=== PATIENT | female | born 1980 | race African-American/Black ===

== ENCOUNTER 2019-07-08 10:08 | Emergency (ER) | payer MEDICARE, OTHER, MEDICAID ==
--- NOTE | 2019-07-08 10:53 | ER Document Report ---
ED Medical Screen (RME) - General Chief Complaint: Abdominal Pain Stated Complaint: ABDOMINAL PAIN,VAGINAL PAIN Time Seen by Provider: 07/08/19 10:41 Notes: Patient is a 38-year-old female with a history of Crohn's disease who presents the emergency department with a chief complaint of abdominal pain and vaginal discharge. Patient states that she is visiting from [place] and her luggage has not arrived. Patient is currently on clindamycin. Patient states that she is on it for vaginal discharge and she does not have her medication. Patient states that she does have some abdominal pain and vaginal discharge, which is normal for her when she has an acute Crohn's attack. Patient has a colostomy. LMP: last week. Exam: Soft mildly tender abdomen. Left lower colostomy noted. I have greeted and performed a rapid initial assessment of this patient. A comprehensive ED assessment and evaluation of the patient, analysis of test results and completion of medical decision making process will be conducted by an additional ED providers. - Related Data Allergies/Adverse Reactions: cephalexin [From Keflex] Allergy (Verified 07/08/19 10:37) morphine Allergy (Verified 07/08/19 10:37) tramadol Allergy (Verified 07/08/19 10:37) Past Medical History - Social History Frequency of alcohol use: None Drug Abuse: None Physical Exam - Vital signs Vitals: Temp Pulse Resp BP Pulse Ox 98.1 F 102 H 18 112/76 100 07/08/19 10:26 07/08/19 10:26 07/08/19 10:26 07/08/19 10:26 07/08/19 10:26 Course - Vital Signs Vital signs: Temp Pulse Resp BP Pulse Ox 98.1 F 102 H 18 112/76 100 07/08/19 10:26 07/08/19 10:26 07/08/19 10:26 07/08/19 10:26 07/08/19 10:26
[2019-07-08] MEDS ORDERED: NORMAL SALINE 1000 ML 1,000 ML IV ONE (12:50)
--- NOTE | 2019-07-08 12:52 | ER Document Report ---
ED GI/ - General Chief Complaint: Abdominal Pain Stated Complaint: ABDOMINAL PAIN,VAGINAL PAIN Time Seen by Provider: 07/08/19 10:41 Primary Care Provider: [facility] [Provider Group] - Follow up as needed Mode of Arrival: Ambulatory Information source: Patient Notes: Patient presents complaining of flareup of her chronic pelvic pain and vaginal pain. Patient has a history of Crohn's and possibly hidradenitis. Patient states she has had surgery in which they removed her labia and clitoris due to her chronic conditions. Patient states that she will occasionally require antibiotics. Patient states that she is visiting here from out of state and her luggage was lost with her antibiotics and pain medication. Patient states she has been taking clindamycin for her vaginal discharge and vaginal pain as well as hydrocodone. Patient denies any fever or urinary symptoms. No nausea vomiting or diarrhea. Patient states this is typical of when she has had flareups in the past. - HPI Patient complains to provider of: Pelvic pain, Vaginal pain Onset: Other - 2 days Timing/Duration: Persistent Quality of pain: Achy Pain Level: 4 Location: Suprapubic, Vaginal Vaginal bleeding (Compared to normal period): None Sexual history: Inactive Associated symptoms: Vaginal discharge. denies: Diarrhea, Nausea Exacerbated by: Denies Relieved by: Denies Similar symptoms previously: Yes Recently seen / treated by doctor: Yes - Related Data Allergies/Adverse Reactions: cephalexin [From Keflex] Allergy (Verified 07/08/19 10:37) morphine Allergy (Verified 07/08/19 10:37) tramadol Allergy (Verified 07/08/19 10:37) Past Medical History - General Information source: Patient - Social History Smoking Status: Never Smoker Frequency of alcohol use: None Drug Abuse: None Lives with: Family Family History: Reviewed & Not Pertinent Patient has suicidal ideation: No Patient has homicidal ideation: No GI Medical History: Reports: Hx Crohn's Disease Musculoskeletal Medical History: Reports Hx Arthritis Past Surgical History: Reports: Hx Bowel Surgery, Hx Section, Hx Cholecystectomy, Hx Colostomy, Other - Labia clitoris, vaginal surgery Review of Systems - Review of Systems Constitutional: No symptoms reported. denies: Fever, Recent illness EENT: No symptoms reported Cardiovascular: No symptoms reported. denies: Chest pain Respiratory: No symptoms reported. denies: Cough Gastrointestinal: Abdominal pain. denies: Diarrhea, Nausea, Vomiting Genitourinary: No symptoms reported Female Genitourinary: Vaginal discharge, Other - Vaginal pain. denies: , Vaginal bleeding Musculoskeletal: No symptoms reported. denies: Back pain Skin: No symptoms reported Hematologic/Lymphatic: No symptoms reported Neurological/Psychological: No symptoms reported Physical Exam - Vital signs Vitals: Temp Pulse Resp BP Pulse Ox 98.1 F 102 H 18 112/76 100 07/08/19 10:26 07/08/19 10:26 07/08/19 10:26 07/08/19 10:26 07/08/19 10:26 - General General appearance: Appears well, Alert In distress: None - HEENT Head: Normocephalic Eyes: Normal Conjunctiva: Normal Nasal: Normal Mouth/Lips: Normal Mucous membranes: Normal Neck: Normal, Supple. No: Lymphadenopathy - Respiratory Respiratory status: No respiratory distress Chest status: Nontender Breath sounds: Normal. No: Rales, Rhonchi, Stridor, Wheezing Chest palpation: Normal - Cardiovascular Rhythm: Regular Heart sounds: S1 appreciated, S2 appreciated - Abdominal Inspection: Other - colostomy, linear abd scar Distension: No distension Bowel sounds: Normal Tenderness: Tender - suprapubic Organomegaly: No organomegaly - Genitourinary External exam: Other - s/p surgical changes - Back Back: Normal, Nontender. No: CVA tenderness - Extremities General upper extremity: Normal inspection, Normal strength General lower extremity: Normal inspection, Normal strength - Neurological Neuro grossly intact: Yes Cognition: Normal Dimitris Coma Scale Eye Opening: Spontaneous Dimitris Coma Scale Verbal: Oriented Dimitris Coma Scale Motor: Obeys Commands Dimitris Coma Scale Total: 15 - Psychological Associated symptoms: Normal affect, Normal mood - Skin Skin Temperature: Warm Skin Moisture: Dry Skin Color: Normal Course - Re-evaluation Re-evalutation: 07/08/19 13:19 pt refused pelvic exam, although is agreeable to have wet prep performed. Pt also refused IVF. 07/08/19 14:14 Patient anxious to leave. Patient reports having chronic problems with vaginal discharge and pelvic pain. Patient states is typical flareups that she has had in the past. Patient here as she needs her prescription for clindamycin and pain medicine that was lost due to her lost luggage. Patient presents with abdominal pain without signs of peritonitis or other life-threatening or serious etiology. Patient appears stable for discharge and has been instructed to return immediately if the symptoms worsen in any way for reevaluation. - Vital Signs Vital signs: Temp Pulse Resp BP Pulse Ox 98.3 F 96 16 112/72 98 07/08/19 14:36 07/08/19 14:36 07/08/19 14:36 07/08/19 14:36 07/08/19 14:36 - Laboratory Result Diagrams: 07/08/19 12:45 07/08/19 12:45 Laboratory results interpreted by me: 07/08/19 07/08/19 07/08/19 12:45 12:45 12:52 Hgb 11.9 L MCV 75 L MCH 23.9 L MCHC 31.8 L RDW 14.5 H Total Protein 10.5 H Leukocyte Esterase Rfl SMALL H Labs- Entire Visit 07/08/19 07/08/19 07/08/19 12:45 12:45 12:45 WBC 4.6 RBC 4.99 Hgb 11.9 L Hct 37.5 MCV 75 L MCH 23.9 L MCHC 31.8 L RDW 14.5 H Plt Count 291 Lymph % (Auto) 22.9 [place] % (Auto) 4.6 Eos % (Auto) 3.1 Baso % (Auto) 0.9 Absolute Neuts (auto) 3.1 Absolute Lymphs (auto) 1.1 Absolute Monos (auto) 0.2 Absolute Eos (auto) 0.1 Absolute Basos (auto) 0.0 Seg Neutrophils % 68.5 Sodium 142.7 Potassium 4.6 Chloride 104 Carbon Dioxide 24 Anion Gap 15 BUN 9 Creatinine 0.91 Est GFR ( Amer) > 60 Est GFR (MDRD) Non-Af > 60 Glucose 91 Calcium 10.1 Total Bilirubin 1.0 Direct Bilirubin 0.2 Neonat Total Bilirubin Not Reportable Neonat Direct Bilirubin Not Reportable Neonat Indirect Bili Not Reportable AST 23 ALT 14 Alkaline Phosphatase 101 Total Protein 10.5 H Albumin 4.9 Serum HCG, Qual NEGATIVE Urine Color Urine Appearance Urine pH Ur Specific [place] Urine Protein Urine Glucose (UA) Urine Ketones Urine Blood Urine Nitrite (Reflex) Urine Bilirubin Urine Urobilinogen Leukocyte Esterase Rfl Urine RBC (Auto) U Hyaline Cast (Auto) Urine WBC (Reflex) Squamous Epi Cells Auto Urine Mucus (Auto) Urine Ascorbic Acid Bacteria (Wet Prep) Trichomonas (Wet Prep) Vaginal WBC Vaginal RBC Vaginal Yeast 07/08/19 07/08/19 12:52 13:17 WBC RBC Hgb Hct MCV MCH MCHC RDW Plt Count Lymph % (Auto) [place] % (Auto) Eos % (Auto) Baso % (Auto) Absolute Neuts (auto) Absolute Lymphs (auto) Absolute Monos (auto) Absolute Eos (auto) Absolute Basos (auto) Seg Neutrophils % Sodium Potassium Chloride Carbon Dioxide Anion Gap BUN Creatinine Est GFR ( Amer) Est GFR (MDRD) Non-Af Glucose Calcium Total Bilirubin Direct Bilirubin Neonat Total Bilirubin Neonat Direct Bilirubin Neonat Indirect Bili AST ALT Alkaline Phosphatase Total Protein Albumin Serum HCG, Qual Urine Color YELLOW Urine Appearance CLEAR Urine pH 5.0 Ur Specific [place] 1.021 Urine Protein NEGATIVE Urine Glucose (UA) NEGATIVE Urine Ketones NEGATIVE Urine Blood NEGATIVE Urine Nitrite (Reflex) NEGATIVE Urine Bilirubin NEGATIVE Urine Urobilinogen NEGATIVE Leukocyte Esterase Rfl SMALL H Urine RBC (Auto) 2 U Hyaline Cast (Auto) 3 Urine WBC (Reflex) 13 Squamous Epi Cells Auto 1 Urine Mucus (Auto) MOD Urine Ascorbic Acid NEGATIVE Bacteria (Wet Prep) 3+ BACTERIA SEEN Trichomonas (Wet Prep) NO TRICHOMONAS SEEN Vaginal WBC 3+ WBCS SEEN Vaginal RBC FEW RBCS SEEN Vaginal Yeast NO YEAST SEEN Discharge - Discharge Clinical Impression: Vaginal discharge, Chronic pelvic pain in female Condition: Stable Disposition: HOME, SELF-CARE Instructions: Abdominal Pain ([facility]), Clindamycin ([facility]), Oral Narcotic Medication ([facility]), Pelvic Pain ([facility]) Additional Instructions: Return immediately for any new or worsening symptoms Followup with your primary care provider, call tomorrow to make a followup appointment Urine culture is pending, we will call if you need any different treatment Prescriptions: Clindamycin HCl [Cleocin Hcl] 300 mg PO QID #28 capsule Hydrocodone/Acetaminophen [[place] 5-325 mg Tablet] 1 tab PO Q6 PRN #12 tablet PRN Reason: Referrals: [facility] [Provider Group] - Follow up as needed
[2019-07-08 13:05] LABS: ABSOLUTE EOSINOPHILS # (AUTO) 0.1 10^3/uL (0.0-0.6); ABSOLUTE LYMPHOCYTES (AUTO) 1.1 10^3/uL (0.5-4.7); ABSOLUTE MONOCYTES (AUTO) 0.2 10^3/uL (0.1-1.4); ABSOLUTE NEUT (AUTO) 3.1 10^3/uL (1.7-8.2); BASOPHILS % (AUTO) 0.9 % (0-2); EOSINOPHILS % (AUTO) 3.1 % (0-6); HEMATOCRIT 37.5 % (36.0-47.0); HEMOGLOBIN 11.9 g/dL (12.0-15.5); LYMPHOCYTES % (AUTO) 22.9 % (13-45); MEAN CORPUSCULAR HEMOGLOBIN 23.9 pg (27.0-33.4); MEAN CORPUSCULAR HGB CONC 31.8 g/dL (32.0-36.0); MEAN CORPUSCULAR VOLUME 75 fl (80-97); MONOCYTES % (AUTO) 4.6 % (3-13); PLATELET COUNT 291 10^3/uL (150-450); RED BLOOD COUNT 4.99 10^6/uL (3.72-5.28); RED CELL DISTRIBUTION WIDTH 14.5 % (11.5-14.0); SEGMENTED NEUTROPHILS % (AUTO) 68.5 % (42-78); TOTAL CELLS COUNTED % (AUTO) 100 %; WHITE BLOOD COUNT 4.6 10^3/uL (4.0-10.5)
[2019-07-08] MEDS ORDERED: HYDROCODONE/ACETAMINOPHEN 5-325 MG TABLET PO ONE (13:20)
[2019-07-08] MEDS ORDERED: CLINDAMYCIN HCL 150 MG CAPSULE PO ONE (13:20)
[2019-07-08 13:30] LABS: ALBUMIN 4.9 g/dL (3.5-5.0); ALKALINE PHOSPHATASE 101 U/L (38-126); ANION GAP 15 (5-19); ASPARTATE AMINO TRANSFERASE 23 U/L (14-36); BILIRUBIN,DIRECT 0.2 mg/dL (0.0-0.4); BLOOD UREA NITROGEN 9 mg/dL (7-20); CALCIUM 10.1 mg/dL (8.4-10.2); CARBON DIOXIDE 24 mmol/L (22-30); CHLORIDE 104 mmol/L (98-107); GLUCOSE 91 mg/dL (75-110); POTASSIUM 4.6 mmol/L (3.6-5.0); TOTAL PROTEIN 10.5 g/dL (6.3-8.2)
[2019-07-08 13:32] LABS: APPEARANCE,URINE CLEAR; BILIRUBIN,URINE NEGATIVE (NEGATIVE); COLOR,URINE YELLOW; GLUCOSE, URINE NEGATIVE (NEGATIVE); KETONES,URINE NEGATIVE (NEGATIVE); PROTEIN,URINE NEGATIVE (NEGATIVE); URINE SPECIFIC GRAVITY 1.021; UROBILINOGEN,URINE NEGATIVE mg/dL (<2.0)
[2019-07-08 13:46] LABS: RBCS (WET MOUNT) FEW RBCS SEEN; T.VAGINALIS (WET MOUNT) NO TRICHOMONAS SEEN; WBCS (WET MOUNT) 3+ WBCS SEEN; YEAST (WET MOUNT) NO YEAST SEEN
[2019-07-08 13:47] LABS: BACTERIA (WET MOUNT) 3+ BACTERIA SEEN
[2019-07-08 14:36] VITALS: BP 112/72
== END 2019-07-08 14:38 | disposition home or self-care (01) ==
LOC: ER 10:08
DX: N89.8 Other specified noninflammatory disorders of vagina (principal); G89.29 Other chronic pain; R10.2 Pelvic and perineal pain; Z88.6 Allergy status to analgesic agent; Z88.3 Allergy status to other anti-infective agents; Z90.49 Acquired absence of other specified parts of digestive tract
CPT/HCPCS: 36415; 87210; 84703; 85025; 80053; 81001; A9270 ×2; 87086; 99284

== ENCOUNTER 2019-07-15 14:00 | Emergency (ER) | payer MEDICARE, MEDICAID ==
--- NOTE | 2019-07-15 14:40 | ER Document Report ---
ED Medical Screen (RME) - General Chief Complaint: Vaginal Pain Stated Complaint: SKIN PROBLEM Time Seen by Provider: 07/15/19 14:32 Mode of Arrival: Ambulatory Information source: Patient Notes: Patient presents complaining of a flareup of her Crohn's disease for the past week. Patient complains of vaginal pain with drainage. Patient with a history of Crohn's and questionable hidradenitis which required her to have vaginal and labial surgery. Patient with pain and discharge to this area. Patient denies any concern for STI. Patient is [place] and lost her baggage. Patient was restarted on her clindamycin that she has taken in the past for problems with her vaginal discharge although she has since run out of the pain medication. Patient feels that her pain is due to a Crohn's flareup. Patient denies any fever nausea or vomiting. I have greeted and performed a rapid initial assessment of this patient. A comprehensive ED assessment and evaluation of the patient, analysis of test results and completion of the medical decision making process will be conducted by additional ED providers. - Related Data Allergies/Adverse Reactions: cephalexin [From Keflex] Allergy (Verified 07/08/19 10:37) morphine Allergy (Verified 07/08/19 10:37) tramadol Allergy (Verified 07/08/19 10:37) Home Medications: Clindamycin. Probiotic. Appetite medication. [place] Past Medical History - Social History Frequency of alcohol use: None Drug Abuse: None GI Medical History: Reports: Hx Crohn's Disease Musculoskeltal Medical History: Reports Hx Arthritis Past Surgical History: Reports: Hx Bowel Surgery, Hx Section, Hx Cholecystectomy, Hx Colostomy, Other - Labia clitoris, vaginal surgery Physical Exam - Vital signs Vitals: Temp Pulse Resp BP Pulse Ox 98.1 F 77 18 120/74 98 07/15/19 14:08 07/15/19 14:08 07/15/19 14:08 07/15/19 14:08 07/15/19 14:08 - General General appearance: Appears well, Alert Notes: No abdominal tenderness, pelvic examination deferred given patient's location in triage Course - Vital Signs Vital signs: Temp Pulse Resp BP Pulse Ox 98.1 F 77 18 120/74 98 07/15/19 14:08 07/15/19 14:08 07/15/19 14:08 07/15/19 14:08 07/15/19 14:08
[2019-07-15 15:13] LABS: ABSOLUTE EOSINOPHILS # (AUTO) 0.1 10^3/uL (0.0-0.6); ABSOLUTE LYMPHOCYTES (AUTO) 1.1 10^3/uL (0.5-4.7); ABSOLUTE MONOCYTES (AUTO) 0.3 10^3/uL (0.1-1.4); ABSOLUTE NEUT (AUTO) 2.8 10^3/uL (1.7-8.2); BASOPHILS % (AUTO) 0.9 % (0-2); EOSINOPHILS % (AUTO) 3.1 % (0-6); HEMATOCRIT 36.4 % (36.0-47.0); HEMOGLOBIN 11.6 g/dL (12.0-15.5); LYMPHOCYTES % (AUTO) 25.8 % (13-45); MEAN CORPUSCULAR HEMOGLOBIN 23.7 pg (27.0-33.4); MEAN CORPUSCULAR HGB CONC 31.8 g/dL (32.0-36.0); MEAN CORPUSCULAR VOLUME 74 fl (80-97); PLATELET COUNT 283 10^3/uL (150-450); RED BLOOD COUNT 4.89 10^6/uL (3.72-5.28); RED CELL DISTRIBUTION WIDTH 14.4 % (11.5-14.0); SEGMENTED NEUTROPHILS % (AUTO) 64.2 % (42-78); TOTAL CELLS COUNTED % (AUTO) 100 %; WHITE BLOOD COUNT 4.3 10^3/uL (4.0-10.5)
[2019-07-15 15:20] LABS: APPEARANCE,URINE CLEAR; BILIRUBIN,URINE NEGATIVE (NEGATIVE); COLOR,URINE YELLOW; GLUCOSE, URINE NEGATIVE (NEGATIVE); KETONES,URINE NEGATIVE (NEGATIVE); PROTEIN,URINE NEGATIVE (NEGATIVE); URINE SPECIFIC GRAVITY 1.018; UROBILINOGEN,URINE NEGATIVE mg/dL (<2.0)
[2019-07-15 15:37] LABS: ANION GAP 11 (5-19); BLOOD UREA NITROGEN 8 mg/dL (7-20); CALCIUM 9.5 mg/dL (8.4-10.2); CARBON DIOXIDE 26 mmol/L (22-30); CHLORIDE 104 mmol/L (98-107); GLUCOSE 89 mg/dL (75-110); POTASSIUM 4.1 mmol/L (3.6-5.0)
--- NOTE | 2019-07-15 17:39 | ER Document Report ---
ED General - General Chief Complaint: Vaginal Pain Stated Complaint: SKIN PROBLEM Time Seen by Provider: 07/15/19 14:32 Mode of Arrival: Ambulatory Information source: Patient - HPI Notes: Patient presents with vaginal pain and discharge in the vaginal area. She also presents with abdominal pain. He states these pains are intermittent. They are moderate to severe. They radiate throughout her lower abdomen and inguinal vaginal area. They are sharp. They are worse with being touched and better if left alone. She states she has chronic Crohn's and is visiting here from [place]. She states she has antibiotics but is run out of her pain medicine. She states she is not worried about a cyclic transmitted disease. She states she has had no vaginal bleeding. She states this feels like the chronic pain she has been she has Crohn's. - Related Data Allergies/Adverse Reactions: cephalexin [From Keflex] Allergy (Verified 07/08/19 10:37) morphine Allergy (Verified 07/08/19 10:37) tramadol Allergy (Verified 07/08/19 10:37) Home Medications: Clindamycin. Probiotic. Appetite medication. [place] Past Medical History - General Information source: Patient - Social History Smoking Status: Never Smoker Frequency of alcohol use: None Drug Abuse: None Family History: Reviewed & Not Pertinent Patient has suicidal ideation: No Patient has homicidal ideation: No GI Medical History: Reports: Hx Crohn's Disease Musculoskeletal Medical History: Reports Hx Arthritis Past Surgical History: Reports: Hx Bowel Surgery, Hx Section, Hx Cholecystectomy, Hx Colostomy, Other - Labia clitoris, vaginal surgery Review of Systems - Review of Systems Constitutional: denies: Chills, Fever Cardiovascular: denies: Chest pain, Palpitations Respiratory: denies: Cough, Short of breath -: Yes All other systems reviewed and negative Physical Exam - Vital signs Vitals: Temp Pulse Resp BP Pulse Ox 98.1 F 77 18 120/74 98 07/15/19 14:08 07/15/19 14:08 07/15/19 14:08 07/15/19 14:08 07/15/19 14:08 Interpretation: Normal - General General appearance: Appears well, Alert - HEENT Head: Normocephalic, Atraumatic Eyes: Normal Pupils: PERRL - Respiratory Respiratory status: No respiratory distress Chest status: Nontender Breath sounds: Normal Chest palpation: Normal - Cardiovascular Rhythm: Regular Heart sounds: Normal auscultation Murmur: No - Abdominal Inspection: Normal Distension: No distension Bowel sounds: Normal Tenderness: Tender - Mild bilateral lower quadrant tenderness to palpation. No rebound or guarding. Organomegaly: No organomegaly - Genitourinary External exam: Other - Patient has vitiligo in the vaginal area as well as absence of labia. She is obviously had significant surgery to the external genitalia secondary to most likely hidradenitis. She is tender in this area however I do not see any acute infection. - Back Back: Normal, Nontender - Extremities General upper extremity: Normal inspection, Nontender, Normal color, Normal ROM, Normal temperature General lower extremity: Normal inspection, Nontender, Normal color, Normal ROM, Normal temperature, Normal weight bearing. No: Kenneth's sign - Neurological Neuro grossly intact: Yes Cognition: Normal Orientation: AAOx4 [place] Coma Scale Eye Opening: Spontaneous [place] Coma Scale Verbal: Oriented Dimitris Coma Scale Motor: Obeys Commands [place] Coma Scale Total: 15 Speech: Normal Motor strength normal: LUE, RUE, LLE, RLE Sensory: Normal - Psychological Associated symptoms: Normal affect, Normal mood - Skin Skin Temperature: Warm Skin Moisture: Dry Skin Color: Normal - Except as noted Course - Re-evaluation Re-evalutation: 07/15/19 17:36 Patient presents with a Crohn's flare. She states she has antibiotics was out of her pain medication. She also complains of some vaginal discharge but I do not see any evidence of acute infection. Patient states she is going back to [place] this weekend. I will give her enough pain medication until she can be seen in [place]. I reviewed the CT scan with Dr. Gallo. She states that patient does not require surgical consult at this time. But that the patient requires a repeat ultrasound in 6 weeks. I believe this is reasonable as patient does not have surgical abdominal signs. She has stable vital signs. 07/15/19 20:35 - Vital Signs Vital signs: Temp Pulse Resp BP Pulse Ox 98.1 F 77 18 120/74 98 07/15/19 14:08 07/15/19 14:08 07/15/19 14:08 07/15/19 14:08 07/15/19 14:08 - Laboratory Result Diagrams: 07/15/19 15:00 07/15/19 15:00 Laboratory results interpreted by me: 07/15/19 07/15/19 15:00 15:00 Hgb 11.6 L MCV 74 L MCH 23.7 L MCHC 31.8 L RDW 14.4 H Urine Blood SMALL H Leukocyte Esterase Rfl MODERATE H - Diagnostic Test Radiology reviewed: Image reviewed, Reports reviewed Discharge - Discharge Clinical Impression: Bilateral ovarian cysts Exacerbation of Crohn's disease Qualifiers: Digestive disease complication type: without complication Qualified Code(s): K50.90 - Crohn's disease, unspecified, without complications Condition: Stable Disposition: HOME, SELF-CARE Instructions: Crohn's Disease ([facility]) Additional Instructions: Please follow-up with your primary doctor as soon as possible. Please have a repeat pelvic ultrasound in 6 weeks to evaluate the cysts on your ovaries. Prescriptions: Hydrocodone/Acetaminophen [[place] 5-325 mg Tablet] 1 tab PO Q6 3 Days #12 tablet
--- NOTE | 2019-07-15 18:10 | RADIOLOGY REPORT (SQ) ---
EXAM DESCRIPTION: U/S NON OB PEL W/DOPPLER COMPLETED DATE/TIME: 07/15/2019 5:16 pm REASON FOR STUDY: vaginal discomfort, hx crohns, hx vag/labial surgy COMPARISON: None. TECHNIQUE: Dynamic and static grayscale images acquired of the pelvis via transabdominal approach an d recorded on PACS. Additional selected color Doppler and spectral images recorded. LIMITATIONS: None. FINDINGS: UTERUS: Contour normal. Heterogeneous myometrium. ENDOMETRIAL STRIPE: No focal or generalized thickening. No masses. CERVIX: 1.9 cm. Not well seen. RIGHT OVARY AND DOPPLER: Enlarged. There are multiple simple and complex cystic areas. The largest measures 3.8 x 3.3 x 2.5 cm. LEFT OVARY AND DOPPLER: Enlarged. Multiple simple and complex cystic areas. FREE FLUID: There multiple simple and complex cystic areas in the midline pelvis. No significant tommy e fluid. OTHER: No other significant finding. MEASUREMENTS: UTERUS: 8.8 x 5.3 x 3.5 cm. ENDOMETRIAL STRIPE: 9 mm. RIGHT OVARY: 6.8 x 5.8 x 4.7 cm. LEFT OVARY: 6.5 x 4.9 x 4.9 cm. IMPRESSION: Multiple simple and complex cystic areas associated with each ovary and also seen in the midline in the pelvis. Possible multiple ovarian cysts with hydrosalpinx. Consider CT. Consider s urgical console. TECHNICAL DOCUMENTATION: JOB ID: [id number]- All Rights Reserved Rev-01/05 Reading location - IP/workstation name: [email or web address]
--- NOTE | 2019-07-15 20:06 | RADIOLOGY REPORT (SQ) ---
EXAM DESCRIPTION: CT ABD/PELVIS WITH IV ONLY COMPLETED DATE/TIME: 07/15/2019 7:50 pm REASON FOR STUDY: abd pain, lesions seen on ultrasound COMPARISON: Ultrasound 07/15/2019 TECHNIQUE: CT scan of the abdomen and pelvis performed using helical scanning technique with dynamic intravenous contrast injection. No oral contrast. Images reviewed with lung, soft tissue, and bone windows. Reconstructed coronal and sagittal MPR images reviewed. Delayed images for evaluation of the urinary system also acquired. All images stored on PACS. All CT scanners at this facility use dose modulation, iterative reconstruction, and/or weight based d osing when appropriate to reduce radiation dose to as low as reasonably achievable (ALARA). [facility]: Dose Right [facility]: CareDose [facility]: Dose Right [facility]: Teradose 4D [facility]: Mango Reservations CONTRAST TYPE AND DOSE: Contrast type and dose not recorded. Refer to anesthesiology technologist's notes. RENAL FUNCTION: BUN 8 creatinine 0.91 RADIATION DOSE: CT Rad equipment meets quality standard of care and radiation dose reduction techniq ues were employed. CTDIvol: NaN mGy. DLP: 0 mGy-cm.. LIMITATIONS: None. FINDINGS: LOWER CHEST: No significant findings. No nodules or infiltrates. LIVER: Normal size. No masses. No dilated ducts. SPLEEN: Normal size. No focal lesions. PANCREAS: No masses. No significant calcifications. No adjacent inflammation or peripancreatic fluid collections. Pancreatic duct not dilated. GALLBLADDER: No identified stones by CT criteria. No inflammatory changes to suggest cholecystitis. ADRENAL GLANDS: No significant masses or asymmetry. RIGHT KIDNEY AND URETER: No solid masses. No significant calcifications. No hydronephrosis or hyd roureter. LEFT KIDNEY AND URETER: No solid masses. No significant calcifications. No hydronephrosis or hydr oureter. AORTA AND VESSELS: No aneurysm. No dissection. Renal arteries, SMA, celiac without stenosis. RETROPERITONEUM: No retroperitoneal adenopathy, hemorrhage or masses. BOWEL AND PERITONEAL CAVITY: There is an ostomy on the left. No bowel mass or inflammation. . APPENDIX: Not identified. PELVIS: There appear to be multiple bilateral ovarian cysts. ABDOMINAL WALL: No masses. No hernias. BONES: No significant or acute findings. OTHER: No other significant finding. IMPRESSION: There appear to be multiple bilateral ovarian cysts. Recommend surgical evaluation. TECHNICAL DOCUMENTATION: JOB ID: [id number] Quality ID # [id number]: Final reports with documentation of one or more dose reduction techniques (e.g., Au tomated exposure control, adjustment of the mA and/or kV according to patient size, use of iterative reconstruction technique) 2010 [employer]- All Rights Reserved Reading location - IP/workstation name: [email or web address]
[2019-07-15 20:51] VITALS: BP 131/87
== END 2019-07-15 20:51 | disposition home or self-care (01) ==
LOC: ER 14:00
DX: N83.202 Unspecified ovarian cyst, left side (principal); N83.201 Unspecified ovarian cyst, right side; K50.90 Crohn's disease, unspecified, without complications; R10.2 Pelvic and perineal pain; R10.813 Right lower quadrant abdominal tenderness; R10.814 Left lower quadrant abdominal tenderness; N89.8 Other specified noninflammatory disorders of vagina; Z79.899 Other long term (current) drug therapy; Z79.2 Long term (current) use of antibiotics; Z88.1 Allergy status to other antibiotic agents; Z88.5 Allergy status to narcotic agent; Z88.6 Allergy status to analgesic agent
CPT/HCPCS: 36415; 74177; 76856; 80048; 81001; 84703; 85025; 87086; 93976; 99284

== ENCOUNTER 2019-08-03 07:33 | Emergency (ER) | payer MEDICARE, MEDICAID ==
[2019-08-03 07:47] VITALS: BP 120/71
== END 2019-08-03 07:46 | disposition left against medical advice (07) ==
LOC: ER 07:33
DX: Z53.21 Procedure and treatment not carried out due to patient leaving prior to being seen by health care provider (principal)

== ENCOUNTER 2019-08-04 12:44 | Emergency (ER) | payer MEDICARE, MEDICAID ==
--- NOTE | 2019-08-04 13:21 | ER Document Report ---
HPI - HPI Time Seen by Provider: 08/04/19 13:16 Pain Level: 4 Notes: 38-year-old female patient with history of Crohn's presenting with chief complaint of an abscess to the roof of her mouth and also some vaginal pain with vaginal discharge. Patient reports she gets vaginal pain when she has a flareup of her Crohn's. She denies any nausea, vomiting, diarrhea or fever. She does report abnormal vaginal discharge. - REPRODUCTIVE Reproductive: DENIES: : Past Medical History - General Information source: Patient - Social History Smoking Status: Never Smoker Family History: Reviewed & Not Pertinent Patient has suicidal ideation: No Patient has homicidal ideation: No GI Medical History: Reports: Hx Crohn's Disease Musculoskeletal Medical History: Reports Hx Arthritis Past Surgical History: Reports: Hx Bowel Surgery, Hx Section, Hx Cholecystectomy, Hx Colostomy, Other - Labia clitoris, vaginal surgery Vertical Provider Document - CONSTITUTIONAL Notes: PHYSICAL EXAMINATION: GENERAL: Well-appearing, well-nourished and in no acute distress. HEAD: Atraumatic, normocephalic. EYES: Pupils equal round and reactive to light, extraocular movements intact, conjunctiva are normal. ENT: Nares patent, oropharynx clear without exudates. Moist mucous membranes. NECK: Normal range of motion, supple without lymphadenopathy LUNGS: Breath sounds clear to auscultation bilaterally and equal. No wheezes rales or rhonchi. HEART: Regular rate and rhythm without murmurs ABDOMEN: Soft, nontender, nondistended abdomen. No guarding, no rebound. No masses appreciated. Female : Refused pelvic exam Musculoskeletal: Normal range of motion, no pitting or edema. No cyanosis. NEUROLOGICAL: Cranial nerves grossly intact. Normal speech, normal gait. Normal sensory, motor exams PSYCH: Normal mood, normal affect. SKIN: Warm, Dry, normal turgor, no rashes or lesions noted. - INFECTION CONTROL TRAVEL OUTSIDE OF THE [place] IN LAST 30 DAYS: No Course - Re-evaluation Re-evalutation: 08/04/19 13:21 Patient adamantly declining to have a pelvic exam done. I did explain to mina ent that if she has abnormal vaginal discharge in the setting of vaginal pain it is my recommendation to have a pelvic. She continues to decline. I will allow the patient to perform a self swab. Laboratory 08/04/19 08/04/19 08/04/19 14:40 14:40 15:15 WBC 7.2 RBC 4.95 Hgb 11.9 L Hct 37.2 MCV 75 L MCH 24.0 L MCHC 32.0 RDW 14.7 H Plt Count 319 Lymph % (Auto) 21.5 Baxter % (Auto) 6.7 Eos % (Auto) 1.6 Baso % (Auto) 0.7 Absolute Neuts (auto) 5.0 Absolute Lymphs (auto) 1.5 Absolute Monos (auto) 0.5 Absolute Eos (auto) 0.1 Absolute Basos (auto) 0.1 Seg Neutrophils % 69.5 Sodium Potassium Chloride Carbon Dioxide Anion Gap BUN Creatinine Est GFR ( Amer) Est GFR (MDRD) Non-Af Glucose Calcium Total Bilirubin Direct Bilirubin Neonat Total Bilirubin Neonat Direct Bilirubin Neonat Indirect Bili AST ALT Alkaline Phosphatase Total Protein Albumin Beta HCG, Quant Total Beta HCG Urine Color YELLOW Urine Appearance CLEAR Urine pH 5.0 Ur Specific [place] 1.025 Urine Protein 30 H Urine Glucose (UA) NEGATIVE Urine Ketones NEGATIVE Urine Blood MODERATE H Urine Nitrite NEGATIVE Urine Bilirubin NEGATIVE Urine Urobilinogen NEGATIVE Ur Leukocyte Esterase MODERATE H Urine WBC (Auto) 19 Urine RBC (Auto) 6 U Hyaline Cast (Auto) 1 Squamous Epi Cells Auto 3 Urine Mucus (Auto) OCC Urine Ascorbic Acid NEGATIVE Epi Cells (Wet Prep) Bacteria (Wet Prep) Trichomonas (Wet Prep) Vaginal WBC Vaginal RBC Vaginal Yeast Chlamydia DNA (PCR) NOT DETECTED N.gonorrhoeae DNA (PCR) NOT DETECTED 08/04/19 08/04/19 15:15 15:15 WBC RBC Hgb Hct MCV MCH MCHC RDW Plt Count Lymph % (Auto) Baxter % (Auto) Eos % (Auto) Baso % (Auto) Absolute Neuts (auto) Absolute Lymphs (auto) Absolute Monos (auto) Absolute Eos (auto) Absolute Basos (auto) Seg Neutrophils % Sodium 142.2 Potassium 4.0 Chloride 102 Carbon Dioxide 24 Anion Gap 16 BUN 14 Creatinine 1.01 Est GFR ( Amer) > 60 Est GFR (MDRD) Non-Af > 60 Glucose 72 L Calcium 9.7 Total Bilirubin 0.8 Direct Bilirubin 0.2 Neonat Total Bilirubin Not Reportable Neonat Direct Bilirubin Not Reportable Neonat Indirect Bili Not Reportable AST 19 ALT 12 Alkaline Phosphatase 106 Total Protein 10.3 H Albumin 5.0 Beta HCG, Quant < 2.39 Total Beta HCG NEGATIVE Urine Color Urine Appearance Urine pH Ur Specific [place] Urine Protein Urine Glucose (UA) Urine Ketones Urine Blood Urine Nitrite Urine Bilirubin Urine Urobilinogen Ur Leukocyte Esterase Urine WBC (Auto) Urine RBC (Auto) U Hyaline Cast (Auto) Squamous Epi Cells Auto Urine Mucus (Auto) Urine Ascorbic Acid Epi Cells (Wet Prep) 3+ EPITHELIALS SEEN Bacteria (Wet Prep) 4+ BACTERIA SEEN Trichomonas (Wet Prep) NO TRICHOMONAS SEEN Vaginal WBC 3+ WBCS SEEN Vaginal RBC 1+ RBCS SEEN Vaginal Yeast NO YEAST SEEN Chlamydia DNA (PCR) N.gonorrhoeae DNA (PCR) - Vital Signs Vital signs: Temp Pulse Resp BP Pulse Ox 99.1 F 120 H 20 130/71 H 95 08/04/19 13:12 08/04/19 12:50 08/04/19 13:12 08/04/19 12:50 08/04/19 13:12 - Laboratory Result Diagrams: 08/04/19 15:15 08/04/19 15:15 Discharge - Discharge Clinical Impression: Bacterial vaginosis Crohn's disease Qualifiers: Gastrointestinal tract location: unspecified location Digestive disease complication type: unspecified complication Qualified Code(s): K50.919 - Crohn's disease, unspecified, with unspecified complications Urinary tract infection Qualifiers: Urinary tract infection type: site unspecified Hematuria presence: with hematuria Qualified Code(s): N39.0 - Urinary tract infection, site not specified Condition: Stable Disposition: HOME, SELF-CARE Additional Instructions: Your urine shows findings consistent with a urinary tract infection. Please jake e all the antibiotics as directed even if your symptoms have improved. Please follow-up with your primary care physician as needed. Return to emergency room if you develop fever >101F, persistent vomiting, become lethargic, have severe pain in your sides, or any other symptoms that are concerning to you. You have an overgrowth of natural vaginal bacteria, called bacterial vaginosis. You are being treated with an antibiotic called metronidazole. Do not drink alcohol while taking this medication. Complete all of the antibiotic even if your symptoms have resolved. Return for abdominal pain, vomiting, fever of greater than 101F, or any other symptoms that are worrisome to you. Please fol low-up with your CRANE HELPER or primary care doctor as needed. You are also having a flareup of your Crohn's. The prednisone will help with this. Please follow-up with your primary care doctor as discussed. Prescriptions: Amox Tr/Potassium Clavulanate [Augmentin 875-125 mg Tablet] 1 tab PO BID #14 tablet Fluconazole [Diflucan] 150 mg PO ONCE PRN #1 tablet PRN Reason: Metronidazole [Flagyl] 500 mg PO BID #14 tablet Prednisone [Sterapred Ds] 1 pkg PO ASDIR PRN 12 Days tab.ds.pk PRN Reason:
[2019-08-04 15:24] LABS: APPEARANCE,URINE CLEAR; BILIRUBIN,URINE NEGATIVE (NEGATIVE); COLOR,URINE YELLOW; GLUCOSE, URINE NEGATIVE (NEGATIVE); KETONES,URINE NEGATIVE (NEGATIVE); LEUKOCYTE ESTERASE,URINE MODERATE (NEGATIVE); NITRITE,URINE NEGATIVE (NEGATIVE); PROTEIN,URINE 30 mg/dL (NEGATIVE); URINE SPECIFIC GRAVITY 1.025; UROBILINOGEN,URINE NEGATIVE mg/dL (<2.0)
[2019-08-04 15:24] LABS: ABSOLUTE BASOPHILS # (AUTO) 0.1 10^3/uL (0.0-0.2); ABSOLUTE EOSINOPHILS # (AUTO) 0.1 10^3/uL (0.0-0.6); ABSOLUTE LYMPHOCYTES (AUTO) 1.5 10^3/uL (0.5-4.7); ABSOLUTE MONOCYTES (AUTO) 0.5 10^3/uL (0.1-1.4); BASOPHILS % (AUTO) 0.7 % (0-2); EOSINOPHILS % (AUTO) 1.6 % (0-6); HEMATOCRIT 37.2 % (36.0-47.0); HEMOGLOBIN 11.9 g/dL (12.0-15.5); LYMPHOCYTES % (AUTO) 21.5 % (13-45); MEAN CORPUSCULAR VOLUME 75 fl (80-97); MONOCYTES % (AUTO) 6.7 % (3-13); PLATELET COUNT 319 10^3/uL (150-450); RED BLOOD COUNT 4.95 10^6/uL (3.72-5.28); RED CELL DISTRIBUTION WIDTH 14.7 % (11.5-14.0); SEGMENTED NEUTROPHILS % (AUTO) 69.5 % (42-78); TOTAL CELLS COUNTED % (AUTO) 100 %; WHITE BLOOD COUNT 7.2 10^3/uL (4.0-10.5)
[2019-08-04 15:36] LABS: BACTERIA (WET MOUNT) 4+ BACTERIA SEEN; EPITHELIALS (WET MOUNT) 3+ EPITHELIALS SEEN; RBCS (WET MOUNT) 1+ RBCS SEEN; T.VAGINALIS (WET MOUNT) NO TRICHOMONAS SEEN; WBCS (WET MOUNT) 3+ WBCS SEEN; YEAST (WET MOUNT) NO YEAST SEEN
[2019-08-04 15:47] LABS: ALKALINE PHOSPHATASE 106 U/L (38-126); ANION GAP 16 (5-19); ASPARTATE AMINO TRANSFERASE 19 U/L (14-36); BILIRUBIN,DIRECT 0.2 mg/dL (0.0-0.4); BILIRUBIN,TOTAL 0.8 mg/dL (0.2-1.3); BLOOD UREA NITROGEN 14 mg/dL (7-20); CALCIUM 9.7 mg/dL (8.4-10.2); CARBON DIOXIDE 24 mmol/L (22-30); CHLORIDE 102 mmol/L (98-107); GLUCOSE 72 mg/dL (75-110); TOTAL PROTEIN 10.3 g/dL (6.3-8.2)
[2019-08-04 16:43] LABS: CHLAM PCR NOT DETECTED (NOT DETECT)
[2019-08-04 16:54] VITALS: BP 112/79
== END 2019-08-04 17:17 | disposition home or self-care (01) ==
LOC: ER 12:44
DX: N76.0 Acute vaginitis (principal); B96.89 Other specified bacterial agents as the cause of diseases classified elsewhere; K50.919 Crohn's disease, unspecified, with unspecified complications; N39.0 Urinary tract infection, site not specified; K12.2 Cellulitis and abscess of mouth; R10.2 Pelvic and perineal pain
CPT/HCPCS: 36415; 80053; 81001; 84702; 85025; 87210; 87491; 87591; 99284

== ENCOUNTER 2019-08-09 11:37 | Emergency (ER) | payer MEDICARE, MEDICAID ==
--- NOTE | 2019-08-09 11:59 | ER Document Report ---
ED Medical Screen (RME) - General Chief Complaint: Abdominal Pain Stated Complaint: ABDOMINAL PAIN Time Seen by Provider: 08/09/19 11:55 Mode of Arrival: Ambulatory Information source: Patient Notes: 38-year-old female presented to ED for lower abdominal pain. She has a history of Crohn's. She states she is not having any bloody stool at this time but she is having vaginal pain and discharge burning with urination. She states she was here on Monday and she made an appointment with her doctor but is not till August 20. Patient is alert and oriented respirations regular nonlabored s peaking in full sentences. I have greeted and performed a rapid initial assessment of this patient. A comprehensive ED assessment and evaluation of the patient, analysis of test results and completion of medical decision making process will be conducted by an additional ED providers. TRAVEL OUTSIDE OF THE [place] IN LAST 30 DAYS: No - Related Data Allergies/Adverse Reactions: cephalexin [From Keflex] Allergy (Verified 08/04/19 13:16) morphine Allergy (Verified 08/04/19 13:16) tramadol Allergy (Verified 08/04/19 13:16) Past Medical History GI Medical History: Reports: Hx Crohn's Disease Musculoskeltal Medical History: Reports Hx Arthritis Past Surgical History: Reports: Hx Bowel Surgery, Hx Section, Hx Cholecystectomy, Hx Colostomy, Other - Labia clitoris, vaginal surgery Physical Exam - Vital signs Vitals: Temp Pulse Resp BP Pulse Ox 98.2 F 110 H 18 125/80 98 08/09/19 11:41 08/09/19 11:41 08/09/19 11:41 08/09/19 11:41 08/09/19 11:41 Course - Vital Signs Vital signs: Temp Pulse Resp BP Pulse Ox 98.2 F 110 H 18 125/80 98 08/09/19 11:41 08/09/19 11:41 08/09/19 11:41 08/09/19 11:41 08/09/19 11:41
[2019-08-09 12:32] LABS: APPEARANCE,URINE SLIGHTLY-CLOUDY; BILIRUBIN,URINE NEGATIVE (NEGATIVE); COLOR,URINE YELLOW; GLUCOSE, URINE NEGATIVE (NEGATIVE); KETONES,URINE NEGATIVE (NEGATIVE); PROTEIN,URINE 100 mg/dL (NEGATIVE); URINE SPECIFIC GRAVITY 1.024; UROBILINOGEN,URINE NEGATIVE mg/dL (<2.0)
[2019-08-09 13:52] LABS: CHLAM PCR NOT DETECTED (NOT DETECT)
[2019-08-09] MEDS ORDERED: NORMAL SALINE 1000 ML 1,000 ML IV ONE (14:09)
[2019-08-09] MEDS ORDERED: METHYLPREDNISOLONE INJ 125 MG/2 ML SDV IV ONE (14:10)
[2019-08-09] MEDS ORDERED: KETOROLAC TROMETHAMINE INJ/PF 30 MG/1 ML SDV IV ONE (14:12)
--- NOTE | 2019-08-09 14:17 | ER Document Report ---
ED General - General Chief Complaint: Abdominal Pain Stated Complaint: ABDOMINAL PAIN Time Seen by Provider: 08/09/19 11:55 Mode of Arrival: Ambulatory Notes: 38-year-old woman with a history of Crohn's disease. States that she has been off her medications, Humira since her surgery was performed over 2 years ago. However now is having a flareup of Crohn's symptoms with abdominal pain and back pain. She has not seen a installation drafter in the area as she has relocated here from [place]. Denies fever, vomiting, minimum increase in fluid in her colostomy bag. TRAVEL OUTSIDE OF THE [place] IN LAST 30 DAYS: No - Related Data Allergies/Adverse Reactions: cephalexin [From Keflex] Allergy (Verified 08/09/19 11:56) morphine Allergy (Verified 08/09/19 11:56) tramadol Allergy (Verified 08/09/19 11:56) Past Medical History - General Information source: Patient - Social History Smoking Status: Never Smoker Chew tobacco use (# tins/day): No Drug Abuse: None Family History: Reviewed & Not Pertinent Patient has suicidal ideation: No Patient has homicidal ideation: No GI Medical History: Reports: Hx Crohn's Disease Musculoskeletal Medical History: Reports Hx Arthritis Past Surgical History: Reports: Hx Bowel Surgery, Hx Section, Hx Cholecystectomy, Hx Colostomy, Other - Labia clitoris, vaginal surgery Review of Systems - Review of Systems Notes: Constitutional: Negative for fever. HENT: Negative for sore throat. Eyes: Negative for visual changes. Cardiovascular: Negative for chest pain. Respiratory: Negative for shortness of breath. Gastrointestinal: + abdominal pain Genitourinary: Negative for dysuria. Musculoskeletal: Negative for back pain. Skin: Negative for rash. Neurological: Negative for headaches, weakness or numbness. 10 point ROS negative except as marked above and in HPI. Physical Exam - Vital signs Vitals: Temp Pulse Resp BP Pulse Ox 98.2 F 110 H 18 125/80 98 08/09/19 11:41 08/09/19 11:41 08/09/19 11:41 08/09/19 11:41 08/09/19 11:41 - Notes Notes: PHYSICAL EXAMINATION: Physical Exam: General: Well-nourished well-developed female in no acute distress HEENT: NC/AT, pupils equal round and reactive to light, MM moist,nares clear, Neck: supple, no adenopathy, no masses. Lungs: clear, no wheezing, no rales no rhonchi CVS: Regular rate and rhythm no murmur gallop or rub Abdomen: Soft active nontender, no masses, no hepatosplenomegaly Ext: No edema clubbing or cyanosis. Neuro: Alert and responsive, moving all 4 extremities on command, cranial nerves intact. Skin: Intact no open lesions, no rash PSYCH: Normal mood, normal affect. 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 Would like to have the oral medications if possible, have explained I do not have a oral medication which controlled her symptoms. I have given her the option to sign out against my advice with the ability to return to the emergency department if needed. - Vital Signs Vital signs: Temp Pulse Resp BP Pulse Ox 97.8 F 72 20 132/78 H 100 08/09/19 14:53 08/09/19 14:53 08/09/19 14:53 08/09/19 14:53 08/09/19 14:53 - Laboratory Result Diagrams: 08/09/19 14:27 08/09/19 14:27 Laboratory results interpreted by me: 08/09/19 08/09/19 08/09/19 12:03 14:27 14:27 Hgb 10.9 L Hct 33.9 L MCV 75 L MCH 24.0 L RDW 14.5 H Total Protein 8.7 H Urine Protein 100 H Urine Blood SMALL H Leukocyte Esterase Rfl TRACE H I have reviewed laboratory data and used this information for the treatment decisions regarding the patient. Lab Discharge - Discharge Clinical Impression: Crohn's disease Qualifiers: Gastrointestinal tract location: unspecified location Digestive disease complication type: unspecified complication Qualified Code(s): K50.919 - Crohn's disease, unspecified, with unspecified complications Disposition: AGAINST MEDICAL ADVICE
[2019-08-09 14:56] VITALS: BP 132/78
[2019-08-09 14:56] LABS: ABSOLUTE BASOPHILS # (AUTO) 0.1 10^3/uL (0.0-0.2); ABSOLUTE EOSINOPHILS # (AUTO) 0.1 10^3/uL (0.0-0.6); ABSOLUTE LYMPHOCYTES (AUTO) 0.8 10^3/uL (0.5-4.7); ABSOLUTE MONOCYTES (AUTO) 0.2 10^3/uL (0.1-1.4); ABSOLUTE NEUT (AUTO) 3.6 10^3/uL (1.7-8.2); BASOPHILS % (AUTO) 1.1 % (0-2); EOSINOPHILS % (AUTO) 1.6 % (0-6); HEMATOCRIT 33.9 % (36.0-47.0); HEMOGLOBIN 10.9 g/dL (12.0-15.5); LYMPHOCYTES % (AUTO) 16.9 % (13-45); MEAN CORPUSCULAR HGB CONC 32.1 g/dL (32.0-36.0); MEAN CORPUSCULAR VOLUME 75 fl (80-97); PLATELET COUNT 218 10^3/uL (150-450); RED BLOOD COUNT 4.54 10^6/uL (3.72-5.28); RED CELL DISTRIBUTION WIDTH 14.5 % (11.5-14.0); SEGMENTED NEUTROPHILS % (AUTO) 75.4 % (42-78); TOTAL CELLS COUNTED % (AUTO) 100 %; WHITE BLOOD COUNT 4.8 10^3/uL (4.0-10.5)
[2019-08-09 15:05] LABS: ALBUMIN 4.1 g/dL (3.5-5.0); ALKALINE PHOSPHATASE 99 U/L (38-126); ANION GAP 9 (5-19); ASPARTATE AMINO TRANSFERASE 21 U/L (14-36); BILIRUBIN,DIRECT 0.2 mg/dL (0.0-0.4); BILIRUBIN,TOTAL 0.8 mg/dL (0.2-1.3); BLOOD UREA NITROGEN 7 mg/dL (7-20); CALCIUM 9.2 mg/dL (8.4-10.2); CARBON DIOXIDE 23 mmol/L (22-30); CHLORIDE 107 mmol/L (98-107); GLUCOSE 90 mg/dL (75-110); POTASSIUM 4.6 mmol/L (3.6-5.0); TOTAL PROTEIN 8.7 g/dL (6.3-8.2)
== END 2019-08-09 14:56 | disposition left against medical advice (07) ==
LOC: ER 11:37
DX: K50.919 Crohn's disease, unspecified, with unspecified complications (principal); R10.9 Unspecified abdominal pain; M54.9 Dorsalgia, unspecified; Z90.49 Acquired absence of other specified parts of digestive tract; Z88.1 Allergy status to other antibiotic agents; Z88.6 Allergy status to analgesic agent; Z88.5 Allergy status to narcotic agent; Z53.29 Procedure and treatment not carried out because of patient's decision for other reasons
CPT/HCPCS: 36415; 80053; 81001; 84703; 85025; 87086; 87491; 87591; 99284

== ENCOUNTER 2019-08-09 19:07 | Emergency (ER) | payer MEDICARE, MEDICAID ==
--- NOTE | 2019-08-09 19:38 | ER Document Report ---
ED Medical Screen (RME) - General Chief Complaint: Abdominal Pain Stated Complaint: ABDOMINAL PAIN Time Seen by Provider: 08/09/19 19:36 Mode of Arrival: Ambulatory Information source: Patient Notes: 38-year-old female presents to ED for lower abdominal and vaginal pain. She does have a history of Crohn's. She states the pain is in the same area that her Crohn's is always in. She states she does have a vaginal discharge. She has burning pain and frequency with urination. She was here earlier today blood urine was sent and results were done and she was going to get IV pain medicine a nd fluids and she had to leave to go and pick her children up from school. She is back to the ED at this time for continued pain. I have greeted and performed a rapid initial assessment of this patient. A comprehensive ED assessment and evaluation of the patient, analysis of test results and completion of medical decision making process will be conducted by an additional ED providers. TRAVEL OUTSIDE OF THE [place] IN LAST 30 DAYS: No - Related Data Allergies/Adverse Reactions: cephalexin [From Keflex] Allergy (Verified 08/09/19 11:56) morphine Allergy (Verified 08/09/19 11:56) tramadol Allergy (Verified 08/09/19 11:56) Past Medical History GI Medical History: Reports: Hx Crohn's Disease Musculoskeltal Medical History: Reports Hx Arthritis Past Surgical History: Reports: Hx Bowel Surgery, Hx Section, Hx Cholecystectomy, Hx Colostomy, Other - Labia clitoris, vaginal surgery
[2019-08-09] MEDS ORDERED: NORMAL SALINE 1000 ML 1,000 ML IV ONE (19:50)
[2019-08-09 21:12] LABS: BACTERIA (WET MOUNT) 3+ BACTERIA SEEN; RBCS (WET MOUNT) FEW RBCS SEEN; T.VAGINALIS (WET MOUNT) NO TRICHOMONAS SEEN; WBCS (WET MOUNT) 1+ WBCS SEEN; YEAST (WET MOUNT) NO YEAST SEEN
[2019-08-10] MEDS ORDERED: CIPROFLOXACIN HCL 500 MG TABLET PO ONE (01:02)
[2019-08-10] MEDS ORDERED: HYDROCODONE/ACETAMINOPHEN 5-325 MG TABLET PO ONE (01:02)
[2019-08-10] MEDS ORDERED: METRONIDAZOLE 500 MG TABLET PO ONE (01:02)
[2019-08-10] MEDS ORDERED: PREDNISONE 20 MG TABLET PO ONE (01:02)
[2019-08-10 01:18] VITALS: BP 122/82
--- NOTE | 2019-08-12 09:15 | ER Document Report ---
Entered by ELADIO CAMACHO SCRIBE 08/10/19 0042 Acting as scribe for:DONG MENDOZA IV, MD ED GI/ - General Chief Complaint: Abdominal Pain Stated Complaint: ABDOMINAL PAIN Time Seen by Provider: 08/09/19 19:36 Mode of Arrival: Ambulatory Notes: This 38 year old female patient presents to the emergency department today with complaints of abdominal pain. Patient has a very complicated GI history including colostomy due to Crohn's complications. Patient is also noted to be noncompliant, stating she has not taken Humira in over a year without any real explanation as to why. Patient reports that she just moved here from [place] and does not have a GI doctor here to follow-up with. Patient states her pain today feels similar to previous Crohn's flares and she states that in [place] they "would just give me prednisone, Cipro, Flagyl, and pain medication". Patient is requesting that same treatment tonight. Patient mentions vaginal discomfort and discharge but is adamant that no pelvic exam be performed. Patient states she "always gets vaginal discharge and discomfort with her Crohn's flares". TRAVEL OUTSIDE OF THE [place] IN LAST 30 DAYS: No - Related Data Allergies/Adverse Reactions: cephalexin [From Keflex] Allergy (Verified 08/09/19 11:56) morphine Allergy (Verified 08/09/19 11:56) tramadol Allergy (Verified 08/09/19 11:56) Past Medical History - General Information source: Patient - Social History Smoking Status: Never Smoker Cigarette use (# per day): No Frequency of alcohol use: None Drug Abuse: None Lives with: Family Family History: Reviewed & Not Pertinent Patient has suicidal ideation: No Patient has homicidal ideation: No GI Medical History: Reports: Hx Crohn's Disease - with resulting colostomy Musculoskeletal Medical History: Reports Hx Arthritis Past Surgical History: Reports: Hx Bowel Surgery, Hx Section, Hx Cholecystectomy, Hx Colostomy, Other - Labia clitoris vaginal surgery Review of Systems - Review of Systems Constitutional: No symptoms reported EENT: No symptoms reported Cardiovascular: No symptoms reported Respiratory: No symptoms reported Gastrointestinal: See HPI, Abdominal pain Genitourinary: No symptoms reported Female Genitourinary: See HPI Musculoskeletal: No symptoms reported Skin: No symptoms reported Hematologic/Lymphatic: No symptoms reported Neurological/Psychological: No symptoms reported -: Yes All other systems reviewed and negative Physical Exam - Vital signs Vitals: Temp Pulse Resp BP Pulse Ox 98.2 F 100 16 104/77 100 08/09/19 19:47 08/09/19 19:47 08/09/19 19:47 08/09/19 19:47 08/09/19 19:47 - Notes Notes: Physical Exam: General: Alert, appears well. HEENT: Normocephalic. Atraumatic. PERRL. Extraocular movements intact. Oropharynx clear. Neck: Supple. Non-tender. Respiratory: No respiratory distress. Clear and equal breath sounds bilaterally. Cardiovascular: Regular rate and rhythm. Abdominal: Mild diffuse lower abdominal tenderness with palpation. Colostomy in placed with brown stool in colostomy bag. No distension. Normal Bowel Sounds. Female Genitourinary: Pelvic deferred by patient Back: No gross abnormalities. Extremities: Moves all four extremities. Upper extremities: Normal inspection. Normal ROM. Lower extremities: Normal inspection. No edema. Normal ROM. Neurological: Normal cognition. AAOx4. Normal speech. Psychological: Normal affect. Normal Mood. Skin: Warm. Dry. Normal color. Course - Vital Signs Vital signs: Temp Pulse Resp BP Pulse Ox 98.0 F 81 16 122/82 100 08/10/19 01:15 08/10/19 01:15 08/10/19 01:15 08/10/19 01:15 08/10/19 01:15 Discharge - Discharge Clinical Impression: Crohn's disease Qualifiers: Gastrointestinal tract location: unspecified location Digestive disease complication type: without complication Qualified Code(s): K50.90 - Crohn's disease, unspecified, without complications Condition: Good Disposition: HOME, SELF-CARE Instructions: Abdominal Pain ([facility]) Additional Instructions: Return to the Emergency Department without delay if any worse. FOLLOW UP WITH YOUR PROVIDER LATER THIS MONTH SCHEDULED HOME CARE INSTRUCTIONS & INFORMATION: Thank you for choosing us for your medical needs. We hope you're satisfied with the care you received. After you leave, you must properly care for your problem and, at the same time, observe its progress. Any condition can change. Some illnesses can change rapidly over hours or days. If your condition worsens, return to the Emergency Department or see your physician promptly. ABOUT YOUR X-RAYS AND EKG'S: If you had an EKG or X-rays taken, they have been read by the Emergency Physician. The X-rays and EKG's will also be read by a Radiologist or Painter And Body Work within 24 hours. If discrepancies are noted, you will be notified by telephone. Please be certain the ED has a correct telephone number & address where you can be reached. Also, realize that some fractures or abnormalities do not show up on initial X-rays. If your symptoms continue, see your physician. ABOUT YOUR LABORATORY TEST: If you had laboratory tests, the results have been reviewed by the Emergency Physician. Some test results (for example cultures) may not be available for several days. You will be contacted if any test result shows you need additional treatment. Please be certain the ED has a correct telephone number and address where you can be reached. ABOUT YOUR MEDICATIONS: You will receive instructions on how to take your medicine on the prescription label you receive. Additional information may be provided by the Pharmacy. If you have questions afterwards, call the ED for clarification or further instructions. Some prescribed medications may cause drowsiness. Do not perform tasks such as driving a car or operating machinery without consulting your Pharmacist. If you feel you need a refill of pain medication, your condition will need re-evaluation. Please do not call for a refill of any medication. ABOUT YOUR SIGNATURE: Signature of this document acknowledges to followin. Understanding that you received emergency treatment and that you may be released before al medical problems are known or treated. Please be certain the ED has a correct phone number & address where you can be reached. 2. Acknowledgement that you will arrange for follow-up care as recommended. 3. Authorization for the Emergency Physician to provide information to your follow-up Physician in order to maximize your care. AT ANY TIME, IF YOUR SYMPTOMS CHANGE SIGNIFICANTLY OR WORSEN OR YOU DEVELOP NEW SYMPTOMS, RETURN TO THE EMERGENCY DEPARTMENT IMMEDIATELY FOR RE-EVALUATION. OUR GOAL IS TO PROVIDE EXCELLENT MEDICAL CARE! WE HOPE THAT WE HAVE MET YOUR EXPECTATIONS DURING YOUR EMERGENCY DEPARTMENT VISIT AND THAT YOU FEEL YOU HAVE RECEIVED EXCELLENT CARE! Crohn's Disease Crohn's disease is an inflammatory disease of the intestines, affecting both the large and small intestine. The cause is unknown. Often there is vague abdominal pain and diarrhea for years before the diagnosis is made. The disease causes spotty thickening and inflammation of the bowel wall. With Crohn's disease, rectal fissures and abscesses are common. So is perforation of the bowel and internal abscess. The disease tends to flare spontaneously, then quiet down again. It never goes away completely. There is no cure for Crohn's disease. Acute flare-ups can be treated with steroids (such as prednisone), sometimes in combination with other medicines. Antibiotics (usually metronidazole) are often helpful. Sulfasalazine can ease the inflammation during flare-ups. Antidiarrhea medicine is taken as needed. Surgery may be needed for intestinal blockage, perforation, or hemorrhage. But surgery doesn't cure the disease -- it comes back in other places. Crohn's disease can cause immune disease in other body parts. Some patients will develop eye inflammation, arthritis, stiffened spine, liver inflammation, or skin disease. Kidney stones are more common in Crohn's patients. Lactose intolerance is common. There is a significant risk of developing a bowel tumor. Call the doctor if you have increasing abdominal pain, repeated vomiting, fever, rectal bleeding, or worsening diarrhea. Prescriptions: Hydrocodone/Acetaminophen [Vicodin 5-300 mg Tablet] 1 each PO Q6HP PRN 3 Days #12 tablet PRN Reason: Ciprofloxacin HCl [Cipro 500 mg Tablet] 500 mg PO BID #20 tablet Prednisone [Deltasone 20 mg Tablet] 3 tab PO DAILY 4 Days #12 tablet Metronidazole [Flagyl 500 mg Tablet] 500 mg PO TID #30 tablet I personally performed the services described in the documentation, reviewed and edited the documentation which was dictated to the scribe in my presence, and it accurately records my words and actions.
== END 2019-08-10 01:28 | disposition home or self-care (01) ==
LOC: ER 19:07
DX: K50.90 Crohn's disease, unspecified, without complications (principal); N89.8 Other specified noninflammatory disorders of vagina; Z93.3 Colostomy status; Z88.1 Allergy status to other antibiotic agents; Z88.6 Allergy status to analgesic agent; Z88.5 Allergy status to narcotic agent
CPT/HCPCS: 99284; 36415; 87086; 87210; 84703; 85025; 80053; 81001; 87491; 87591; A9270 ×4; J7512

== ENCOUNTER 2019-08-16 04:34 | Emergency (ER) | payer MEDICAID, MEDICARE ==
[2019-08-16 06:52] LABS: APPEARANCE,URINE CLEAR; BILIRUBIN,URINE NEGATIVE (NEGATIVE); COLOR,URINE YELLOW; GLUCOSE, URINE NEGATIVE (NEGATIVE); KETONES,URINE NEGATIVE (NEGATIVE); LEUKOCYTE ESTERASE,URINE SMALL (NEGATIVE); NITRITE,URINE NEGATIVE (NEGATIVE); PROTEIN,URINE NEGATIVE (NEGATIVE); URINE SPECIFIC GRAVITY 1.016; UROBILINOGEN,URINE NEGATIVE mg/dL (<2.0)
[2019-08-16 07:51] LABS: ABSOLUTE BASOPHILS # (AUTO) 0.1 10^3/uL (0.0-0.2); ABSOLUTE EOSINOPHILS # (AUTO) 0.1 10^3/uL (0.0-0.6); ABSOLUTE LYMPHOCYTES (AUTO) 1.2 10^3/uL (0.5-4.7); ABSOLUTE MONOCYTES (AUTO) 0.5 10^3/uL (0.1-1.4); ABSOLUTE NEUT (AUTO) 4.9 10^3/uL (1.7-8.2); BASOPHILS % (AUTO) 0.9 % (0-2); EOSINOPHILS % (AUTO) 1.8 % (0-6); HEMATOCRIT 37.6 % (36.0-47.0); HEMOGLOBIN 11.9 g/dL (12.0-15.5); LYMPHOCYTES % (AUTO) 17.2 % (13-45); MEAN CORPUSCULAR HEMOGLOBIN 23.8 pg (27.0-33.4); MEAN CORPUSCULAR HGB CONC 31.6 g/dL (32.0-36.0); MEAN CORPUSCULAR VOLUME 75 fl (80-97); PLATELET COUNT 285 10^3/uL (150-450); RED BLOOD COUNT 4.98 10^6/uL (3.72-5.28); RED CELL DISTRIBUTION WIDTH 14.6 % (11.5-14.0); SEGMENTED NEUTROPHILS % (AUTO) 73.1 % (42-78); TOTAL CELLS COUNTED % (AUTO) 100 %; WHITE BLOOD COUNT 6.8 10^3/uL (4.0-10.5)
[2019-08-16 08:16] LABS: ALBUMIN 4.1 g/dL (3.5-5.0); ALKALINE PHOSPHATASE 107 U/L (38-126); ANION GAP 14 (5-19); ASPARTATE AMINO TRANSFERASE 19 U/L (14-36); BILIRUBIN,DIRECT 0.3 mg/dL (0.0-0.4); BILIRUBIN,TOTAL 0.4 mg/dL (0.2-1.3); BLOOD UREA NITROGEN 14 mg/dL (7-20); CALCIUM 8.7 mg/dL (8.4-10.2); CARBON DIOXIDE 24 mmol/L (22-30); CHLORIDE 101 mmol/L (98-107); GLUCOSE 86 mg/dL (75-110); POTASSIUM 4.4 mmol/L (3.6-5.0); TOTAL PROTEIN 8.5 g/dL (6.3-8.2)
[2019-08-16 11:39] VITALS: BP 118/72
--- NOTE | 2019-08-19 07:46 | ER Document Report ---
Entered by ELADIO CAMACHO SCRIBE 08/16/19 1113 Acting as scribe for:DONG MENDOZA IV, MD ED GI/ - General Chief Complaint: Abdominal Pain Stated Complaint: STOMACH PROBLEM Time Seen by Provider: 08/16/19 11:11 Primary Care Provider: ANGELI MARAVILLA PA-C [Primary Care Provider] - Follow up as needed Information source: Patient Notes: This 38 year old female patient presents to the emergency department today with complaints of her chronic abdominal pain related to her Crohn's disease. Patient has a very complicated GI history including colostomy due to Crohn's complications. Patient is also noted to be noncompliant, stating she has not taken Humira in over a year without any real explanation as to why. The patient moved to the area in the middle of June 2019 and has been here an alarming amount of times since then, including 5 visits in the last two weeks, all for complaints of abdominal pain. Patient still has yet to follow up with GI or pain management here, although she states that she has an appointment with GI in four days (08/20/19). Patient requesting pain medication to "hold her over" until then. Patient states that she "ate cabbage on Andrea", adding that she "knows she is not supposed to eat that because it usually causes her to have flare ups". TRAVEL OUTSIDE OF THE [place] IN LAST 30 DAYS: No - Related Data Allergies/Adverse Reactions: cephalexin [From Keflex] Allergy (Verified 08/09/19 11:56) morphine Allergy (Verified 08/16/19 07:56) tramadol Allergy (Verified 08/09/19 11:56) Past Medical History - General Information source: Patient - Social History Smoking Status: Never Smoker Cigarette use (# per day): No Frequency of alcohol use: None Drug Abuse: None Lives with: Family Family History: Reviewed & Not Pertinent Patient has suicidal ideation: No Patient has homicidal ideation: No GI Medical History: Reports: Hx Crohn's Disease - with resulting colostomy Musculoskeletal Medical History: Reports Hx Arthritis Past Surgical History: Reports: Hx Bowel Surgery, Hx Section, Hx Cholecystectomy, Hx Colostomy, Other - Labia clitoris vaginal surgery Review of Systems - Review of Systems Constitutional: denies: Fever EENT: No symptoms reported Cardiovascular: No symptoms reported Respiratory: No symptoms reported Gastrointestinal: See HPI, Abdominal pain, Other - "frequent bowel movements" Genitourinary: No symptoms reported Female Genitourinary: No symptoms reported Musculoskeletal: No symptoms reported Skin: No symptoms reported Hematologic/Lymphatic: No symptoms reported Neurological/Psychological: No symptoms reported -: Yes All other systems reviewed and negative Physical Exam - Vital signs Vitals: Temp Pulse Resp BP Pulse Ox 98.4 F 95 16 117/87 H 98 08/16/19 04:39 08/16/19 04:39 08/16/19 04:39 08/16/19 04:39 08/16/19 04:39 - Notes Notes: Physical Exam: General: Alert, appears well. HEENT: Normocephalic. Atraumatic. PERRL. Extraocular movements intact. Oropharynx clear. Neck: Supple. Non-tender. Respiratory: No respiratory distress. Clear and equal breath sounds bilaterally. Cardiovascular: Regular rate and rhythm. Abdominal: Minimal left lower quadrant tenderness to palpation, colostomy in place with brown stool in colostomy bag. No distension. Normal Bowel Sounds. Back: No gross abnormalities. Extremities: Moves all four extremities. Upper extremities: Normal inspection. Normal ROM. Lower extremities: Normal inspection. No edema. Normal ROM. Neurological: Normal cognition. AAOx4. Normal speech. Psychological: Normal affect. Normal Mood. Skin: Warm. Dry. Normal color. Course - Re-evaluation Re-evalutation: 08/16/19 11:18 Patient is sitting up in bed, awake and alert, in no acute distress. Patient admits to dietary indiscretion a couple of days ago. Patient states she has run out of her pain medication and is requesting a prescription for few more tablets to "get by" until she sees her router operator in 4 days. Results of emergency department MSE discussed with patient. All all questions were answered prior to discharge. When asked if patient understood everything about her visit today and had explained in a manner which was easy to understand, joy weber answered in the affirmative. Emergency signs and symptoms, reasons to return to the emergency department discussed with patient. - Vital Signs Vital signs: Temp Pulse Resp BP Pulse Ox 98.2 F 95 16 118/72 99 08/16/19 11:38 08/16/19 11:38 08/16/19 11:38 08/16/19 11:38 08/16/19 11:38 - Laboratory Result Diagrams: 08/16/19 07:33 08/16/19 07:33 Laboratory results interpreted by me: 08/16/19 08/16/19 08/16/19 03:39 07:33 07:33 Hgb 11.9 L MCV 75 L MCH 23.8 L MCHC 31.6 L RDW 14.6 H Total Protein 8.5 H Ur Leukocyte Esterase SMALL H Discharge - Discharge Clinical Impression: Crohn's disease Condition: Good Disposition: HOME, SELF-CARE Additional Instructions: Return to the Emergency Department without delay if any worse. He certain to follow-up with your router operator next Monday as scheduled. HOME CARE INSTRUCTIONS & INFORMATION: Thank you for choosing us for your medical needs. We hope you're satisfied with the care you received. After you leave, you must properly care for your problem and, at the same time, observe its progress. Any condition can change. Some illnesses can change rapidly over hours or days. If your condition worsens, return to the Emergency Department or see your physician promptly. ABOUT YOUR X-RAYS AND EKG'S: If you had an EKG or X-rays taken, they have been read by the Emergency Physician. The X-rays and EKG's will also be read by a Radiologist or Merchandise Buyer within 24 hours. If discrepancies are noted, you wi ll be notified by telephone. Please be certain the ED has a correct telephone number & address where you can be reached. Also, realize that some fractures or abnormalities do not show up on initial X-rays. If your symptoms continue, see your physician. ABOUT YOUR LABORATORY TEST: If you had laboratory tests, the results have been reviewed by the Emergency Physician. Some test results (for example cultures) may not be available for several days. You will be contacted if any test result shows you need additional treatment. Please be certain the ED has a correct telephone number and address where you can be reached. ABOUT YOUR MEDICATIONS: You will receive instructions on how to take your medicine on the prescription label you receive. Additional information may be provided by the Pharmacy. If you have questions afterwards, call the ED for clarification or further instructions. Some prescribed medications may cause drowsiness. Do not perform tasks such as driving a car or operating machinery without consulting your Pharmacist. If you feel you need a refill of pain medication, your condition will need re-evaluation. Please do not call for a refill of any medication. ABOUT YOUR SIGNATURE: Signature of this document acknowledges to followin. Understanding that you received emergency treatment and that you may be released before al medical problems are known or treated. Please be certain the ED has a correct phone number & address where you can be reached. 2. Acknowledgement that you will arrange for follow-up care as recommended. 3. Authorization for the Emergency Physician to provide information to your follow-up Physician in order to maximize your care. AT ANY TIME, IF YOUR SYMPTOMS CHANGE SIGNIFICANTLY OR WORSEN OR YOU DEVELOP NEW SYMPTOMS, RETURN TO THE EMERGENCY DEPARTMENT IMMEDIATELY FOR RE-EVALUATION. OUR GOAL IS TO PROVIDE EXCELLENT MEDICAL CARE! WE HOPE THAT WE HAVE MET YOUR EXPECTATIONS DURING YOUR EMERGENCY DEPARTMENT VISIT AND THAT YOU FEEL YOU HAVE RECEIVED EXCELLENT CARE! Crohn's Disease Crohn's disease is an inflammatory disease of the intestines, affecting both the large and small intestine. The cause is unknown. Often there is vague abdominal pain and diarrhea for years before the diagnosis is made. The disease causes spotty thickening and inflammation of the bowel wall. With Crohn's disease, rectal fissures and abscesses are common. So is perforation of the bowel and internal abscess. The disease tends to flare spontaneously, then quiet down again. It never goes away completely. There is no cure for Crohn's disease. Acute flare-ups can be treated with steroids (such as prednisone), sometimes in combination with other medicines. Antibiotics (usually metronidazole) are often helpful. Sulfasalazine can ease the inflammation during flare-ups. Antidiarrhea medicine is taken as needed. Surgery may be needed for intestinal blockage, perforation, or hemorrhage. But surgery doesn't cure the disease -- it comes back in other places. Crohn's disease can cause immune disease in other body parts. Some patients will develop eye inflammation, arthritis, stiffened spine, liver inflammation, or skin disease. Kidney stones are more common in Crohn's patients. Lactose intolerance is common. There is a significant risk of developing a bowel tumor. Call the doctor if you have increasing abdominal pain, repeated vomiting, fever, rectal bleeding, or worsening diarrhea. Prescriptions: Hydrocodone/Acetaminophen [Vicodin 5-300 mg Tablet] 1 each PO Q6H PRN #12 tablet PRN Reason: Referrals: ANGELI MARAVILAL PA-C [Primary Care Provider] - Follow up as needed I personally performed the services described in the documentation, reviewed and edited the documentation which was dictated to the scribe in my presence, and it accurately records my words and actions.
== END 2019-08-16 11:40 | disposition home or self-care (01) ==
LOC: ER 04:34
DX: K50.90 Crohn's disease, unspecified, without complications (principal); T39.4X6A Underdosing of antirheumatics, not elsewhere classified, initial encounter; Z91.14 Patient's other noncompliance with medication regimen; Z91.11 Patient's noncompliance with dietary regimen; Z93.3 Colostomy status; Z88.1 Allergy status to other antibiotic agents; Z88.6 Allergy status to analgesic agent; Z88.5 Allergy status to narcotic agent
CPT/HCPCS: 36415; 80053; 81001; 81025; 83690; 85025; 99284

== ENCOUNTER 2019-08-23 23:58 | Emergency (ER) | payer MEDICARE, MEDICAID ==
[2019-08-24 00:06] VITALS: BP 109/68
== END 2019-08-24 00:20 | disposition left against medical advice (07) ==
LOC: ER 23:58
DX: Z53.21 Procedure and treatment not carried out due to patient leaving prior to being seen by health care provider (principal); K12.2 Cellulitis and abscess of mouth

== ENCOUNTER 2019-08-24 10:21 | Emergency (ER) | payer MEDICARE, MEDICAID ==
[2019-08-24] MEDS ORDERED: HYDROCODONE/ACETAMINOPHEN 5-325 MG TABLET PO ONE (10:55)
[2019-08-24] MEDS ORDERED: PENICILLIN V POTASSIUM 500 MG TABLET PO ONE (10:55)
--- NOTE | 2019-08-24 10:57 | ER Document Report ---
ED Medical Screen (RME) - General Chief Complaint: Abdominal Pain Stated Complaint: ABDOMINAL PAIN Time Seen by Provider: 08/24/19 10:46 Primary Care Provider: ANGELI MARAVILLA PA-C [Primary Care Provider] - Follow up as needed Notes: Patient is a 38-year-old female who presents to the emergency department with a chief complaint of abdominal pain. Patient has a history of Crohn's disease. She was able to see a primary care provider on Monday, but states that she was unable to have her prescription filled due to her insurance. Patient is having worsening abdominal pain. She has had diarrhea. Denies any vomiting. She also has another complaint of a possible tooth abscess. Patient has poor dentition. Exam: Dental caries noted to teeth #7, 8, 9, and 10. Soft, mildly tender abdomen. Exam limited due to patient being in chair in triage. I have greeted and performed a rapid initial assessment of this patient. A comprehensive ED assessment and evaluation of the patient, analysis of test results and completion of medical decision making process will be conducted by an additional ED providers. TRAVEL OUTSIDE OF THE [place] IN LAST 30 DAYS: No - Related Data Allergies/Adverse Reactions: cephalexin [From Keflex] Allergy (Verified 08/09/19 11:56) morphine Allergy (Verified 08/16/19 07:56) tramadol Allergy (Verified 08/09/19 11:56) Past Medical History - Social History Chew tobacco use (# tins/day): No Frequency of alcohol use: None Drug Abuse: None GI Medical History: Reports: Hx Crohn's Disease - with resulting colostomy Musculoskeltal Medical History: Reports Hx Arthritis Past Surgical History: Reports: Hx Bowel Surgery, Hx Section, Hx Cholecystectomy, Hx Colostomy, Other - Labia clitoris vaginal surgery Physical Exam - Vital signs Vitals: Temp Pulse Resp BP Pulse Ox 97.9 F 98 14 122/86 H 99 08/24/19 10:08/24/19 10:08/24/19 10:08/24/19 10:08/24/19 10:26 Course - Vital Signs Vital signs: Temp Pulse Resp BP Pulse Ox 97.9 F 98 14 122/86 H 99 08/24/19 10:08/24/19 10:08/24/19 10:08/24/19 10:08/24/20 10:26 Doctor's Discharge - Discharge Referrals: ANGELI MARAVILLA PA-C [Primary Care Provider] - Follow up as needed
[2019-08-24 11:58] LABS: ABSOLUTE EOSINOPHILS # (AUTO) 0.2 10^3/uL (0.0-0.6); ABSOLUTE LYMPHOCYTES (AUTO) 1.1 10^3/uL (0.5-4.7); ABSOLUTE MONOCYTES (AUTO) 0.2 10^3/uL (0.1-1.4); ABSOLUTE NEUT (AUTO) 2.5 10^3/uL (1.7-8.2); BASOPHILS % (AUTO) 0.3 % (0-2); EOSINOPHILS % (AUTO) 4.6 % (0-6); HEMATOCRIT 33.3 % (36.0-47.0); HEMOGLOBIN 10.6 g/dL (12.0-15.5); LYMPHOCYTES % (AUTO) 27.4 % (13-45); MEAN CORPUSCULAR HEMOGLOBIN 23.7 pg (27.0-33.4); MEAN CORPUSCULAR HGB CONC 31.7 g/dL (32.0-36.0); MEAN CORPUSCULAR VOLUME 75 fl (80-97); MONOCYTES % (AUTO) 5.6 % (3-13); PLATELET COUNT 220 10^3/uL (150-450); RED BLOOD COUNT 4.46 10^6/uL (3.72-5.28); RED CELL DISTRIBUTION WIDTH 14.7 % (11.5-14.0); SEGMENTED NEUTROPHILS % (AUTO) 62.1 % (42-78); TOTAL CELLS COUNTED % (AUTO) 100 %; WHITE BLOOD COUNT 4.1 10^3/uL (4.0-10.5)
[2019-08-24 12:04] LABS: APPEARANCE,URINE CLEAR; BILIRUBIN,URINE NEGATIVE (NEGATIVE); COLOR,URINE YELLOW; GLUCOSE, URINE NEGATIVE (NEGATIVE); KETONES,URINE NEGATIVE (NEGATIVE); LEUKOCYTE ESTERASE,URINE TRACE (NEGATIVE); NITRITE,URINE NEGATIVE (NEGATIVE); PROTEIN,URINE 30 mg/dL (NEGATIVE); UROBILINOGEN,URINE NEGATIVE mg/dL (<2.0)
[2019-08-24 12:15] LABS: ALBUMIN 3.9 g/dL (3.5-5.0); ALKALINE PHOSPHATASE 103 U/L (38-126); ANION GAP 10 (5-19); ASPARTATE AMINO TRANSFERASE 18 U/L (14-36); BILIRUBIN,DIRECT 0.2 mg/dL (0.0-0.4); BILIRUBIN,TOTAL 0.5 mg/dL (0.2-1.3); BLOOD UREA NITROGEN 14 mg/dL (7-20); CALCIUM 8.8 mg/dL (8.4-10.2); CARBON DIOXIDE 23 mmol/L (22-30); CHLORIDE 107 mmol/L (98-107); GLUCOSE 88 mg/dL (75-110); POTASSIUM 4.4 mmol/L (3.6-5.0); TOTAL PROTEIN 8.6 g/dL (6.3-8.2)
[2019-08-24] MEDS ORDERED: CLINDAMYCIN HCL 150 MG CAPSULE PO ONE (15:44)
--- NOTE | 2019-08-24 15:45 | ER Document Report ---
HPI - HPI Patient complains to provider of: Dental pain, Crohn's flareup Time Seen by Provider: 08/24/19 10:46 Onset: Other - 4 days Onset/Duration: Persistent Quality of pain: Achy Pain Level: 5 Context: Patient presents complaining of a flareup of her Crohn's disease in which she has chronic lower pelvic pain. Patient denies any dysuria or vaginal discharge. Patient is on her menstrual cycle but does not feel as though her symptoms are related to her menses. Patient states she did see her primary doctor recently and was prescribed a new immune modulator medication although her insurance card has not come in so she has not been able to pick her medicine up from the pharmacy. Patient states she also has pending GI referral and pain management referral for her chronic pain. Patient states she has had some diarrhea but no nausea or vomiting. Patient denies any fever. Patient also complains of dental infection and has a swelling to the gingiva of the right upper jaw. Patient states that whenever she pushes on the swollen area she is able to express purulent drainage. Associated Symptoms: Other - Lower pelvic pain, dental pain. denies: Nonproductive cough, Productive cough, Fever, Headache, Nausea, Vomiting Exacerbated by: Denies Relieved by: Denies Similar symptoms previously: Yes Recently seen / treated by doctor: Yes - ROS ROS below otherwise negative: Yes Systems Reviewed and Negative: Yes All other systems reviewed and negative - CONSTITUTIONAL Constitutional: DENIES: Fever, Chills - EENT Notes: Dental pain with gingival infection - NEURO Neurology: DENIES: Headache - CARDIOVASCULAR Cardiovascular: DENIES: Chest pain - RESPIRATORY Respiratory: DENIES: Trouble Breathing, Coughing - GASTROINTESTINAL Gastrointestinal: REPORTS: Abdominal Pain, Diarrhea. DENIES: Nausea, Patient vomiting, Black / Bloody Stools - URINARY Urinary: DENIES: Dysuria, Urgency, Frequency - REPRODUCTIVE Reproductive: DENIES: : - MUSCULOSKELETAL Musculoskeletal: DENIES: Extremity pain, Back Pain - DERM Skin Color: Normal Skin Problems: None Past Medical History - General Information source: Patient - Social History Smoking Status: Never Smoker Chew tobacco use (# tins/day): No Frequency of alcohol use: None Drug Abuse: None Occupation: None Lives with: Family Family History: Reviewed & Not Pertinent Patient has suicidal ideation: No Patient has homicidal ideation: No GI Medical History: Reports: Hx Crohn's Disease - with resulting colostomy Musculoskeletal Medical History: Reports Hx Arthritis Skin Medical History: Reports Other - Hidradenitis Past Surgical History: Reports: Hx Bowel Surgery, Hx Section, Hx Cholecystectomy, Hx Colostomy, Other - Labia clitoris vaginal surgery Vertical Provider Document - CONSTITUTIONAL Agree With Documented VS: Yes Exam Limitations: No Limitations General Appearance: WD/WN, No Apparent Distress - INFECTION CONTROL TRAVEL OUTSIDE OF THE [place] IN LAST 30 DAYS: No - HEENT HEENT: Atraumatic, Normocephalic Mouth Diagram: 1 - fluctuant abscess 2 - dental decay Notes: No trismus, no sublingual or submental swelling - NECK Neck: Normal Inspection, Supple. negative: Lymphadenopathy-Left, Lymphadenopathy-Right - RESPIRATORY Respiratory: Breath Sounds Normal, No Respiratory Distress - CARDIOVASCULAR Cardiovascular: Regular Rate, Regular Rhythm - GI/ABDOMEN Gastrointestinal: Abdomen Soft, Abdomen Tender - Left lower pelvic tenderness, No Organomegaly, Normal Bowel Sounds - BACK Back: Normal Inspection. negative: CVA Tenderness-Right, CVA Tenderness-Left - MUSCULOSKELETAL/EXTREMETIES Musculoskeletal/Extremeties: [place] DORSEY - NEURO Level of Consciousness: Awake, Alert, Appropriate Motor/Sensory: No Motor Deficit - DERM Integumentary: Warm, Dry, No Rash Course - Re-evaluation Re-evalutation: 08/24/19 15:58 Patient denies any urinary symptoms at this time. Patient is on her menstrual cycle although denies dysmenorrhea symptoms. Patient states that her pain is typical of her chronic flareups with her Crohn's disease. Patient does have a pending referral with GI as well as pain management to further manage her chronic pain symptoms. Patient also is waiting for her insurance card so that she can get her new immune modulating medication to better manage her Crohn's. Patient does have incidental dental infection with fluctuant abscess. Offered patient incision and drainage procedure. Patient declines at this time. Patient advised of worsening signs or symptoms that she should return immed iately for. Patient verbalized understanding agrees with plan of care. Patient encouraged to follow-up with pain management for her chronic pain as the emergency department does not manage chronic pain. Patient otherwise nontoxic in appearance with benign diagnostic evaluation at this time. - Vital Signs Vital signs: Temp Pulse Resp BP Pulse Ox 97.9 F 98 14 122/86 H 99 08/24/19 10:26 08/24/19 10:26 08/24/19 10:26 08/24/19 10:26 08/24/19 10:26 - Laboratory Result Diagrams: 08/24/19 11:27 08/24/19 11:27 Laboratory results interpreted by me: 08/24/19 08/24/19 08/24/19 11:27 11:27 11:27 Hgb 10.6 L Hct 33.3 L MCV 75 L MCH 23.7 L MCHC 31.7 L RDW 14.7 H Total Protein 8.6 H Urine Protein 30 H Urine Blood MODERATE H Ur Leukocyte Esterase TRACE H Urine Ascorbic Acid 40 H 08/24/19 23:56 Labs- Entire Visit 08/24/19 08/24/19 08/24/19 11:27 11:27 11:27 WBC 4.1 RBC 4.46 Hgb 10.6 L Hct 33.3 L MCV 75 L MCH 23.7 L MCHC 31.7 L RDW 14.7 H Plt Count 220 Lymph % (Auto) 27.4 [place] % (Auto) 5.6 Eos % (Auto) 4.6 Baso % (Auto) 0.3 Absolute Neuts (auto) 2.5 Absolute Lymphs (auto) 1.1 Absolute Monos (auto) 0.2 Absolute Eos (auto) 0.2 Absolute Basos (auto) 0.0 Seg Neutrophils % 62.1 Sodium 139.7 Potassium 4.4 Chloride 107 Carbon Dioxide 23 Anion Gap 10 BUN 14 Creatinine 0.89 Est GFR ( Amer) > 60 Est GFR (MDRD) Non-Af > 60 Glucose 88 Calcium 8.8 Total Bilirubin 0.5 Direct Bilirubin 0.2 Neonat Total Bilirubin Not Reportable Neonat Direct Bilirubin Not Reportable Neonat Indirect Bili Not Reportable AST 18 ALT 12 Alkaline Phosphatase 103 Total Protein 8.6 H Albumin 3.9 Urine Color YELLOW Urine Appearance CLEAR Urine pH 6.0 Ur Specific [place] 1.020 Urine Protein 30 H Urine Glucose (UA) NEGATIVE Urine Ketones NEGATIVE Urine Blood MODERATE H Urine Nitrite NEGATIVE Urine Bilirubin NEGATIVE Urine Urobilinogen NEGATIVE Ur Leukocyte Esterase TRACE H Urine WBC (Auto) 8 Urine RBC (Auto) 7 Squamous Epi Cells Auto 1 Urine Mucus (Auto) OCC Urine Ascorbic Acid 40 H Discharge - Discharge Clinical Impression: Dental infection, Pelvic pain Crohn disease Qualifiers: Gastrointestinal tract location: unspecified location Digestive disease complication type: unspecified complication Qualified Code(s): K50.919 - Crohn's disease, unspecified, with unspecified complications Condition: Stable Disposition: HOME, SELF-CARE Instructions: Abdominal Pain ([facility]), Chronic Pain Control ([facility]), Clindamycin ([facility]), Dentist, Dental Infection or Abscess ([facility]) Additional Instructions: Return immediately for any new or worsening symptoms Followup with your primary care provider, call tomorrow to make a followup appointment Follow-up with a dental care provider for recheck Prescriptions: Clindamycin HCl [Cleocin Hcl] 300 mg PO QID #28 capsule Naproxen [Naprosyn 250 Nmg Tablet] 1 tab PO BID #14 tablet Hydrocodone/Acetaminophen [[place] 5-325 mg Tablet] 1 tab PO Q6 PRN #8 tablet PRN Reason: Referrals: ANGELI MARAVILLA PA-C [Primary Care Provider] - Follow up as needed [facility] [Provider Group] - 08/26/19 [facility] [Provider Group] - 08/26/19
[2019-08-24 16:26] VITALS: BP 121/89
== END 2019-08-24 16:27 | disposition home or self-care (01) ==
LOC: ER 10:21
DX: K50.919 Crohn's disease, unspecified, with unspecified complications (principal); K04.7 Periapical abscess without sinus; R10.2 Pelvic and perineal pain; K08.89 Other specified disorders of teeth and supporting structures; R19.7 Diarrhea, unspecified; G89.29 Other chronic pain
CPT/HCPCS: 99284; 36415; 87086; 85025; 80053; 81001; A9270 ×3

== ENCOUNTER → 2019-09-17 | Outpatient (CLI) | payer MEDICARE, MEDICAID | LOC: OD 10:36 | PROVIDERS: ATTEND Internal Medicine Gastroenterology | DX: K50.919 Crohn's disease, unspecified, with unspecified complications (principal) ==

== ENCOUNTER 2020-02-02 06:25 | Emergency (ER) | payer MEDICARE, MEDICAID ==
[2020-02-02] MEDS ORDERED: MORPHINE SULFATE 10 MG/ML INJ IV ONE (07:36)
[2020-02-02] MEDS ORDERED: NORMAL SALINE 1000 ML 1,000 ML IV ONE (07:36)
[2020-02-02] MEDS ORDERED: ONDANSETRON HCL INJ/PF 4 MG/2 ML SDV IV ONE (07:36)
--- NOTE | 2020-02-02 07:36 | ER Document Report ---
ED GI/ - General Chief Complaint: Abdominal Pain Stated Complaint: ABDOMINAL PAIN Time Seen by Provider: 02/02/20 07:16 Primary Care Provider: NAT CRUZ MD [ACTIVE STAFF] - Follow up as needed Notes: HPI: Patient is a 39-year-old female with past medical history of Crohn's with multiple abdominal surgeries who presents today stating about 2 weeks she has had some intermittent lower and upper abdominal discomfort. No radiation. No aggravating relieving factors. No fevers, dysuria, and no vomiting. She denies any vaginal discharge. She denies any blood in her stools. No diarrhea. Patient has been seen here multiple times since moving from [place] in 2019. She states she has seen a GI physician at [facility]. She states she is not on any immunosuppressive medications despite a colostomy in 2002. She follows up with [facility]. This is where she gets her pain medications. Reviewing the patient's medical chart it appears that the patient received a CT scan of the abdomen and pelvis around 6 months ago. They saw multiple bilateral ovarian cyst at that time. Follow-up ultrasound was performed showing a similar finding. PROVIDER SCRIBE was consulted and the patient was instructed to receive a repeat transvaginal ultrasound in 6 weeks. She never followed up with this and states she was unaware that she was supposed to have this performed. ROS: See HPI All other review of systems reviewed and otherwise negative Reviewed vital signs and nursing note as charted by RN. PHYSICAL EXAM: CONSTITUTIONAL: Alert and oriented and responds appropriately to questions. Well-appearing; well-nourished HEAD: Normocephalic; atraumatic EYES: Sclerae non-icteric ENT: Normal nose; no rhinorrhea; moist mucous membranes; pharynx without lesions noted NECK: Supple without meningismus; non-tender; no cervical lymphadenopathy, no masses CARD: Regular rate and rhythm; no murmurs; symmetric distal pulses RESP: Normal chest excursion without splinting or tachypnea; breath sounds clear and equal bilaterally; no wheezes, no rhonchi, no rales ABD/GI: Normal bowel sounds; non-distended; soft, nonspecific tenderness to all 4 quadrants of the abdomen without rebound or guarding. Multiple abdominal scars. Colostomy in the left lower quadrant of the abdomen with some brown- colored stool without blood BACK: The back appears normal and is non-tender to palpation EXT: Normal ROM in all joints; non-tender to palpation; no edema SKIN: No acute lesions noted NEURO: CN 2-12 intact; 5/5 bilateral upper and lower extremity strength with sensation intact to light touch PSYCH: The patient's mood and manner are appropriate. Grooming and personal hygiene are appropriate. TRAVEL OUTSIDE OF THE [place].S[place] IN LAST 30 DAYS: No - Related Data Allergies/Adverse Reactions: cephalexin [From Keflex] Allergy (Verified 08/09/19 11:56) morphine Allergy (Verified 08/16/19 07:56) tramadol Allergy (Verified 08/09/19 11:56) Home Medications: norco for pain (no script) Past Medical History - Social History Smoking Status: Never Smoker Family History: Reviewed & Not Pertinent Patient has homicidal ideation: No GI Medical History: Reports: Hx Crohn's Disease - with resulting colostomy Musculoskeletal Medical History: Reports Hx Arthritis Past Surgical History: Reports: Hx Bowel Surgery, Hx Section, Hx Cholecystectomy, Hx Colostomy, Other - Labia clitoris vaginal surgery Physical Exam - Vital signs Vitals: Temp 99.3 F 02/02/20 06:47 Course - Re-evaluation Re-evalutation: 02/02/20 07:35 Given the history and physical examination I will obtain basic labs, provide pain meds and fluids, order repeat transvaginal ultrasound and reassess. I do believe an acute stricture or intra-abdominal infection to be unlike without vom iting or fever. I am uncertain why the patient is not on immunosuppressive therapy given the patient's complicated past medical history that she states is secondary to Crohn's. She states she has seen a large animal husbandry technician as well as the pain management specialty group. I will attempt to call the bumper and painter group whoever is on-call today, but it is Monday so I am unsure of my success. 02/02/20 09:08 Labs and imaging thus far as recorded. I have spoken to Mrs. Tadeo at [facility]. She states that they see the patient on every 2 weeks. She states that the patient does have Vicodin. She states that the patient is supposed to be taking Humira but has not taken it secondary to insurance concerns. However the patient does have a primary care physician as well as Medicaid. She further states that the patient is supposed to have follow-up for recurrent urinary tract infections. Urine analysis as recorded. I have sent a urine culture. I also sent a urine chlamydia/gonorrhea and we will perform a pelvic examination with wet mount. 02/02/20 10:00 I attempted a form of pelvic examination. Patient states secondary to her Crohn's she has had multiple surgeries to the vaginal region. She states she did follow-up with PROVIDER SCRIBE around 3 months ago. She states they were unable to perform a pelvic examination secondary to the adhesions. She states that they will wanting to conscious sedate the patient with a follow-up appointment but she missed the appointment secondary to her lack of a ride. I do not believe conscious sedation is appropriate or necessary at this moment. I did perform the swabs without direct visualization or manual. Patient states her pain is much improved. She has not had any vomiting or bowel movements here. White blood cell count as recorded. Afebrile. She states she has an appointment coming up with a large animal husbandry technician. She has a bumper and painter and a primary care physician. 02/02/20 10:29 Patient's pain is much improved. She currently rates it 0 out of 10. No vomiting or diarrhea here. White count as recorded. Pelvic examination laboratory values as recorded with the pending GC/chlamydia. Urine analysis as recorded. Urine culture has been sent. Ultrasound shows no obvious appreciable change. Patient does have a primary care physician and large animal husbandry technician. I will hold on initiating any immunosuppressive therapy at this time given the good follow-up. I will provide PROVIDER SCRIBE follow-up and explain strict return precautions. Patient is comfortable with this plan. - Vital Signs Vital signs: Temp Pulse Resp BP Pulse Ox 99.3 F 92 16 113/67 100 02/02/20 06:50 02/02/20 06:50 02/02/20 06:50 02/02/20 06:50 02/02/20 06:50 - Laboratory Result Diagrams: 02/02/20 07:40 02/02/20 07:40 Laboratory results interpreted by me: 02/02/20 02/02/20 02/02/20 07:25 07:40 07:40 Hgb 9.4 L Hct 28.7 L MCV 69 L MCH 22.6 L RDW 16.1 H Plt Count 507 H Seg Neutrophils % 78.1 H Est GFR (MDRD) Non-Af 55 L AST 13 L Total Protein 8.8 H Urine Protein 100 H Ur Leukocyte Esterase SMALL H Discharge - Discharge Clinical Impression: Leukocytes in urine Abdominal pain Qualifiers: Abdominal location: unspecified location Qualified Code(s): R10.9 - Unspecified abdominal pain Ovarian cyst Qualifiers: Laterality: bilateral Qualified Code(s): N83.201 - Unspecified ovarian cyst, r ight side; N83.202 - Unspecified ovarian cyst, left side Condition: Good Disposition: HOME, SELF-CARE Additional Instructions: Come back immediately with any increased pain, change in location or quality of pain, fevers, persistent vomiting, or any other acute problems. Please make sure that you follow-up with your large animal husbandry technician to discuss immunosuppressive therapy. Follow-up with PROVIDER SCRIBE regarding your bilateral ovarian cyst. Please take the antibiotics we have prescribed and follow-up with your primary care physician for reassessment of your urine as well as for the assessment of the urine culture we have sent. Prescriptions: Nitrofurantoin Monohyd/M-Cryst [Macrobid 100 mg Capsule] 100 mg PO BID #20 cap Referrals: NAT CRUZ MD [ACTIVE STAFF] - Follow up as needed PHILLY COLLADO MD [ACTIVE STAFF] - Follow up as needed
[2020-02-02 07:39] LABS: APPEARANCE,URINE SLIGHTLY-CLOUDY; BILIRUBIN,URINE NEGATIVE (NEGATIVE); COLOR,URINE YELLOW; GLUCOSE, URINE NEGATIVE (NEGATIVE); KETONES,URINE NEGATIVE (NEGATIVE); LEUKOCYTE ESTERASE,URINE SMALL (NEGATIVE); NITRITE,URINE NEGATIVE (NEGATIVE); PROTEIN,URINE 100 mg/dL (NEGATIVE); URINE SPECIFIC GRAVITY 1.031; UROBILINOGEN,URINE NEGATIVE mg/dL (<2.0)
[2020-02-02] MEDS ORDERED: HYDROMORPHONE HCL INJ/PF 2 MG/ML AMPULE IV ONE (07:48)
[2020-02-02 08:01] LABS: ABSOLUTE EOSINOPHILS # (AUTO) 0.2 10^3/uL (0.0-0.6); ABSOLUTE LYMPHOCYTES (AUTO) 1.1 10^3/uL (0.5-4.7); ABSOLUTE MONOCYTES (AUTO) 0.4 10^3/uL (0.1-1.4); ABSOLUTE NEUT (AUTO) 5.9 10^3/uL (1.7-8.2); BASOPHILS % (AUTO) 0.5 % (0-2); HEMATOCRIT 28.7 % (36.0-47.0); HEMOGLOBIN 9.4 g/dL (12.0-15.5); LYMPHOCYTES % (AUTO) 14.2 % (13-45); MEAN CORPUSCULAR HEMOGLOBIN 22.6 pg (27.0-33.4); MEAN CORPUSCULAR HGB CONC 32.6 g/dL (32.0-36.0); MEAN CORPUSCULAR VOLUME 69 fl (80-97); MONOCYTES % (AUTO) 5.2 % (3-13); PLATELET COUNT 507 10^3/uL (150-450); RED BLOOD COUNT 4.14 10^6/uL (3.72-5.28); RED CELL DISTRIBUTION WIDTH 16.1 % (11.5-14.0); SEGMENTED NEUTROPHILS % (AUTO) 78.1 % (42-78); TOTAL CELLS COUNTED % (AUTO) 100 %; WHITE BLOOD COUNT 7.6 10^3/uL (4.0-10.5)
[2020-02-02 08:13] LABS: ALBUMIN 3.6 g/dL (3.5-5.0); ALKALINE PHOSPHATASE 93 U/L (38-126); ANION GAP 9 (5-19); ASPARTATE AMINO TRANSFERASE 13 U/L (14-36); BILIRUBIN,TOTAL 0.3 mg/dL (0.2-1.3); BLOOD UREA NITROGEN 10 mg/dL (7-20); CALCIUM 9.2 mg/dL (8.4-10.2); CARBON DIOXIDE 26 mmol/L (22-30); CHLORIDE 104 mmol/L (98-107); GLUCOSE 107 mg/dL (75-110); POTASSIUM 4.6 mmol/L (3.6-5.0); TOTAL PROTEIN 8.8 g/dL (6.3-8.2)
[2020-02-02] MEDS ORDERED: ACETAMINOPHEN 325 MG TABLET PO ONE (08:14)
[2020-02-02] MEDS ORDERED: NITROFURANTOIN MONOHYD/M-CRYST 100 MG CAPSULE PO ONE (09:17)
--- NOTE | 2020-02-02 09:33 | RADIOLOGY REPORT (SQ) ---
EXAM DESCRIPTION: U/S NON OB PEL W/DOPPLER IMAGES COMPLETED DATE/TIME: 02/02/2020 9:20 am REASON FOR STUDY: 20; bilateral abdominal pain; h/o complex cysts COMPARISON: 07/15/2019. TECHNIQUE: Dynamic and static grayscale images acquired of the pelvis via transabdominal approach an d recorded on PACS. Additional selected color Doppler and spectral images recorded. LIMITATIONS: None. FINDINGS: UTERUS: Contour normal. No mass. ENDOMETRIAL STRIPE: No focal or generalized thickening. No masses. CERVIX: No nabothian cysts. RIGHT OVARY AND DOPPLER: Enlarged. Multiple cysts, the largest is a 3.4 cm cyst containing low level debris. Normal arterial vascular flow without evidence for torsion. LEFT OVARY AND DOPPLER: Enlarged. Multiple cysts, the largest measuring 7.3 cm. Normal arterial vasc ular flow without evidence for torsion. FREE FLUID: Moderate free fluid. OTHER: No other significant finding. MEASUREMENTS: UTERUS: 3.3 x 4.8 x 10.2 cm. ENDOMETRIAL STRIPE: 2 mm. RIGHT OVARY: 4.7 x 5.9 x 6.8 cm. LEFT OVARY: 4.8 x 8.8 x 9.4 cm. IMPRESSION: ENLARGED OVARIES WITH MULTIPLE BILATERAL CYSTS. SIMILAR APPEARANCE TO THE PRIOR STUDY. NO TORSION. MODERATE FREE FLUID. TECHNICAL DOCUMENTATION: JOB ID: [id number] [employer]- All Rights Reserved Rev-01/05 Reading location - IP/workstation name: [email or web address]
[2020-02-02 10:21] LABS: BACTERIA (WET MOUNT) 4+ BACTERIA SEEN; EPITHELIALS (WET MOUNT) 4+ EPITHELIALS SEEN; RBCS (WET MOUNT) 1+ RBCS SEEN; T.VAGINALIS (WET MOUNT) NO TRICHOMONAS SEEN; WBCS (WET MOUNT) 2+ WBCS SEEN; YEAST (WET MOUNT) NO YEAST SEEN
[2020-02-02] MEDS ORDERED: OXYCODONE-ACETAMINOPHEN 5-325 MG TABLET PO ONE (10:36)
[2020-02-02 10:51] VITALS: BP 89/52
[2020-02-02 11:52] LABS: CHLAM PCR NOT DETECTED (NOT DETECT)
== END 2020-02-02 10:50 | disposition home or self-care (01) ==
LOC: ER 06:25
DX: N83.201 Unspecified ovarian cyst, right side (principal); R10.9 Unspecified abdominal pain; R10.30 Lower abdominal pain, unspecified; R10.10 Upper abdominal pain, unspecified; Z98.890 Other specified postprocedural states
CPT/HCPCS: 99284; 96361; 96374; 96375; 36415; 87086; 87210; 83690; 85025; 81025; 87088; 80053; 81001; 87491; 87591; 76856; 93976; A9270 ×3; J1170; J2405; J7030; J8499

== ENCOUNTER 2020-02-15 16:39 | Emergency (ER) | payer MEDICARE, MEDICAID ==
[2020-02-15 16:46] VITALS: BP 100/65
--- NOTE | 2020-02-15 17:32 | ER Document Report ---
ED Medical Screen (RME) - General Chief Complaint: Pelvic Pain Stated Complaint: PELVIC PAIN/VAGINAL BLEEDING Time Seen by Provider: 02/15/20 17:21 Primary Care Provider: ANGELI MARAVILLA PA-C [Primary Care Provider] - Follow up as needed Notes: Patient is a 39-year-old female who presents emergency department with a chief complaint of abdominal pain. Patient was seen here earlier this month and was told that she had ovarian cyst that were large. Patient has not followed up with OB in regards to this issue. Patient states that she continues to have pain. Patient has history of Crohn's disease and has a colostomy. Exam: Moderately tender lower abdomen. TRAVEL OUTSIDE OF THE U.S. IN LAST 30 DAYS: No - Related Data Allergies/Adverse Reactions: cephalexin [From Keflex] Allergy (Verified 02/15/20 17:20) morphine Allergy (Verified 02/15/20 17:20) tramadol Allergy (Verified 02/15/20 17:20) Past Medical History - Social History Chew tobacco use (# tins/day): No Frequency of alcohol use: None Drug Abuse: None GI Medical History: Reports: Hx Crohn's Disease - with resulting colostomy Musculoskeltal Medical History: Reports Hx Arthritis Past Surgical History: Reports: Hx Bowel Surgery, Hx Section, Hx Cholecystectomy, Hx Colostomy, Other - Labia clitoris vaginal surgery Physical Exam - Vital signs Vitals: Temp Pulse Resp BP Pulse Ox 99.2 F 105 H 16 100/65 99 02/15/20 16:44 02/15/20 16:44 02/15/20 16:44 02/15/20 16:44 02/15/20 16:44 Course - Vital Signs Vital signs: Temp Pulse Resp BP Pulse Ox 99.2 F 105 H 16 100/65 99 02/15/20 16:44 02/15/20 16:44 02/15/20 16:44 02/15/20 16:44 02/15/20 16:44 Doctor's Discharge - Discharge Referrals: ANGELI MARAVILLA PA-C [Primary Care Provider] - Follow up as needed
[2020-02-15 18:38] LABS: ABSOLUTE EOSINOPHILS # (AUTO) 0.4 10^3/uL (0.0-0.6); ABSOLUTE LYMPHOCYTES (AUTO) 1.1 10^3/uL (0.5-4.7); ABSOLUTE MONOCYTES (AUTO) 0.2 10^3/uL (0.1-1.4); ABSOLUTE NEUT (AUTO) 3.4 10^3/uL (1.7-8.2); BASOPHILS % (AUTO) 0.7 % (0-2); HEMATOCRIT 28.9 % (36.0-47.0); HEMOGLOBIN 9.2 g/dL (12.0-15.5); LYMPHOCYTES % (AUTO) 21.3 % (13-45); MEAN CORPUSCULAR HEMOGLOBIN 22.2 pg (27.0-33.4); MEAN CORPUSCULAR HGB CONC 31.9 g/dL (32.0-36.0); MEAN CORPUSCULAR VOLUME 70 fl (80-97); MONOCYTES % (AUTO) 4.6 % (3-13); PLATELET COUNT 460 10^3/uL (150-450); RED BLOOD COUNT 4.14 10^6/uL (3.72-5.28); RED CELL DISTRIBUTION WIDTH 17.6 % (11.5-14.0); SEGMENTED NEUTROPHILS % (AUTO) 66.4 % (42-78); TOTAL CELLS COUNTED % (AUTO) 100 %; WHITE BLOOD COUNT 5.1 10^3/uL (4.0-10.5)
[2020-02-15 18:41] LABS: APPEARANCE,URINE SLIGHTLY-CLOUDY; BILIRUBIN,URINE NEGATIVE (NEGATIVE); COLOR,URINE YELLOW; GLUCOSE, URINE NEGATIVE (NEGATIVE); KETONES,URINE NEGATIVE (NEGATIVE); LEUKOCYTE ESTERASE,URINE TRACE (NEGATIVE); NITRITE,URINE NEGATIVE (NEGATIVE); PROTEIN,URINE 100 mg/dL (NEGATIVE); URINE SPECIFIC GRAVITY 1.024; UROBILINOGEN,URINE NEGATIVE mg/dL (<2.0)
== END 2020-02-15 22:00 | disposition left against medical advice (07) ==
LOC: ER 16:39
DX: K50.90 Crohn's disease, unspecified, without complications (principal); R10.2 Pelvic and perineal pain; Z93.3 Colostomy status; Z88.1 Allergy status to other antibiotic agents; Z88.6 Allergy status to analgesic agent; Z88.5 Allergy status to narcotic agent; Z53.20 Procedure and treatment not carried out because of patient's decision for unspecified reasons
CPT/HCPCS: 36415; 81001; 85025; 99281

== ENCOUNTER 2020-02-16 10:00 | Emergency (ER) | payer MEDICARE, MEDICAID ==
[2020-02-16] MEDS ORDERED: NORMAL SALINE 1000 ML 1,000 ML IV ONE (10:26)
--- NOTE | 2020-02-16 10:28 | ER Document Report ---
ED Medical Screen (RME) - General Chief Complaint: Vaginal Bleeding Stated Complaint: VAGINAL BLEEDING/POSSIBLE CYSTS Time Seen by Provider: 02/16/20 10:19 Primary Care Provider: ANGELI MARAVILLA PA-C [Primary Care Provider] - Follow up as needed Information source: Patient Notes: Patient presents complaining of lower pelvic pain and low back pain. Patient states she is recently lost 14 pounds. Patient complains of fatigue. Patient complains of spotting with intercourse and with wiping. Patient denies any vaginal discharge. Patient denies any fever. Patient does have a history of Cr ohn's and a tubal ligation I have greeted and performed a rapid initial assessment of this patient. A comprehensive ED assessment and evaluation of the patient, analysis of test results and completion of the medical decision making process will be conducted by additional ED providers. TRAVEL OUTSIDE OF THE [place] IN LAST 30 DAYS: No - Related Data Allergies/Adverse Reactions: cephalexin [From Keflex] Allergy (Verified 02/16/20 10:26) morphine Allergy (Verified 02/16/20 10:26) tramadol Allergy (Verified 02/16/20 10:26) Past Medical History - Social History Frequency of alcohol use: Occasional Drug Abuse: None GI Medical History: Reports: Hx Crohn's Disease - with resulting colostomy Musculoskeltal Medical History: Reports Hx Arthritis Past Surgical History: Reports: Hx Bowel Surgery, Hx Section, Hx Cholecystectomy, Hx Colostomy, Other - Labia clitoris vaginal surgery Physical Exam - Vital signs Vitals: Temp Pulse Resp BP Pulse Ox 97.5 F 102 H 16 98/61 L 98 02/16/20 10:03 02/16/20 10:03 02/16/20 10:03 02/16/20 10:03 02/16/20 10:03 - Cardiovascular Rhythm: Regular Heart sounds: S1 appreciated, S2 appreciated - Abdominal Tenderness: Tender - Lower pelvic tenderness Course - Vital Signs Vital signs: Temp Pulse Resp BP Pulse Ox 97.5 F 102 H 16 98/61 L 98 02/16/20 10:21 02/16/20 10:03 02/16/20 10:03 02/16/20 10:03 02/16/20 10:03 Doctor's Discharge - Discharge Referrals: ANGELI MARAVILLA PA-C [Primary Care Provider] - Follow up as needed
--- NOTE | 2020-02-16 11:48 | RADIOLOGY REPORT (SQ) ---
EXAM DESCRIPTION: U/S NON OB PEL TV W/DOPPLER IMAGES COMPLETED DATE/TIME: 02/16/2020 11:29 am REASON FOR STUDY: pelvic pain, vag bleeding COMPARISON: Pelvic ultrasound 02/02/2020, 07/15/2019. CT abdomen and pelvis 07/15/2019. TECHNIQUE: Dynamic and static grayscale images acquired of the pelvis via transabdominal approach an d recorded on PACS. Additional selected color Doppler and spectral images recorded. LIMITATIONS: None. FINDINGS: UTERUS: The uterus measures 9.1 x 3.7 x 4.1 cm. No focal myometrial mass was seen. ENDOMETRIAL STRIPE: The endometrium measures 3.6 mm in double wall thickness, within normal limits. CERVIX: No nabothian cysts are shown all. RIGHT OVARY AND DOPPLER: The right ovary measures 7.9 x 3.4 x 6.0 cm, previously measured 4.7 x 5.9 x 6.8 cm. Flow by Doppler was shown to the right ovary. Redemonstration of ovarian cysts, the larges t measuring 4.3 x 3.6 x 6.6 cm. LEFT OVARY AND DOPPLER: The left ovary measures 10.6 x 9.0 x 10.4 cm, previously measured 4.8 x 8.8 x 9.4 cm. Flow by Doppler was shown to the left ovary. Multiple cysts are noted, the largest measuri ng 7.7 x 5.9 x 8.5 cm. FREE FLUID: None noted. IMPRESSION: Enlarged bilateral ovaries with large cysts; ENVELOPE MACHINE OPERATOR consult recommended. TECHNICAL DOCUMENTATION: JOB ID: [id number] [id number] 2010 [employer]- All Rights Reserved Rev-01/05 Reading location - IP/workstation name: [email or web address]
[2020-02-16 12:32] LABS: CHLAM PCR NOT DETECTED (NOT DETECT)
[2020-02-16] MEDS ORDERED: OXYCODONE-ACETAMINOPHEN 5-325 MG TABLET PO ONE ×2 (12:39→15:16)
[2020-02-16 13:11] LABS: ALBUMIN 3.6 g/dL (3.5-5.0); ALKALINE PHOSPHATASE 93 U/L (38-126); ANION GAP 9 (5-19); ASPARTATE AMINO TRANSFERASE 18 U/L (14-36); BILIRUBIN,TOTAL 0.3 mg/dL (0.2-1.3); BLOOD UREA NITROGEN 12 mg/dL (7-20); CARBON DIOXIDE 24 mmol/L (22-30); CHLORIDE 105 mmol/L (98-107); GLUCOSE 99 mg/dL (75-110); POTASSIUM 4.8 mmol/L (3.6-5.0); TOTAL PROTEIN 8.9 g/dL (6.3-8.2)
[2020-02-16 14:20] LABS: ABSOLUTE EOSINOPHILS # (AUTO) 0.3 10^3/uL (0.0-0.6); ABSOLUTE LYMPHOCYTES (AUTO) 0.9 10^3/uL (0.5-4.7); ABSOLUTE MONOCYTES (AUTO) 0.3 10^3/uL (0.1-1.4); ABSOLUTE NEUT (AUTO) 3.4 10^3/uL (1.7-8.2); BASOPHILS % (AUTO) 0.9 % (0-2); EOSINOPHILS % (AUTO) 6.4 % (0-6); HEMATOCRIT 28.1 % (36.0-47.0); LYMPHOCYTES % (AUTO) 17.8 % (13-45); MEAN CORPUSCULAR HEMOGLOBIN 22.2 pg (27.0-33.4); MEAN CORPUSCULAR HGB CONC 32.2 g/dL (32.0-36.0); MEAN CORPUSCULAR VOLUME 69 fl (80-97); MONOCYTES % (AUTO) 5.8 % (3-13); PLATELET COUNT 362 10^3/uL (150-450); RED BLOOD COUNT 4.07 10^6/uL (3.72-5.28); RED CELL DISTRIBUTION WIDTH 17.4 % (11.5-14.0); SEGMENTED NEUTROPHILS % (AUTO) 69.1 % (42-78); TOTAL CELLS COUNTED % (AUTO) 100 %; WHITE BLOOD COUNT 4.9 10^3/uL (4.0-10.5)
[2020-02-16 16:04] VITALS: BP 106/64
--- NOTE | 2020-02-27 08:45 | ER Document Report ---
Entered by YOVANI GABRIEL SCRIBE 02/16/20 1151 Acting as scribe for:SHAHLA REINOSO MD ED GI/ - General Chief Complaint: Vaginal Bleeding Stated Complaint: VAGINAL BLEEDING/POSSIBLE CYSTS Time Seen by Provider: 02/16/20 10:19 Primary Care Provider: ANGELI MARAVILLA PA-C [Primary Care Provider] - Follow up as needed Information source: Patient Notes: This 39 year old female patient presents to the emergency department today with complaints of lower abdominal pain. Patient reports general weakness and vaginal bleeding, with it usually occurring after intercourse and sometimes after using the bathroom. Patient states she has ovarian cysts and has visited the ED x2 weeks ago and yesterday. Patient states she visited her primary doctor x1 week ago and was told her hemoglobin was low. Patient states she was also told by her Doctor that an appointment with OBGYN is too far and has not been scheduled for an appointment. Patient denies a fever and states her last menstrual period was x1 week ago, lasting for x3 days. TRAVEL OUTSIDE OF THE [place] IN LAST 30 DAYS: No - Related Data Allergies/Adverse Reactions: cephalexin [From Keflex] Allergy (Verified 02/16/20 10:26) morphine Allergy (Verified 02/16/20 10:26) tramadol Allergy (Verified 02/16/20 10:26) Past Medical History - General Information source: Patient - Social History Smoking Status: Never Smoker Cigarette use (# per day): No Frequency of alcohol use: None Drug Abuse: None Family History: Reviewed & Not Pertinent Patient has homicidal ideation: No Renal/ Medical History: Reports: Hx Ovarian Cysts GI Medical History: Reports: Hx Crohn's Disease - with resulting colostomy Musculoskeletal Medical History: Reports Hx Arthritis Past Surgical History: Reports: Hx Bowel Surgery, Hx Section, Hx Cholecystectomy, Hx Colostomy, Other - Labia clitoris vaginal surgery Review of Systems - Review of Systems Constitutional: See HPI, Weakness. denies: Fever EENT: No symptoms reported Cardiovascular: No symptoms reported Respiratory: No symptoms reported Gastrointestinal: See HPI, Abdominal pain - lower Genitourinary: No symptoms reported Female Genitourinary: See HPI, Last menstrual period - x1 week ago, Vaginal bleeding Musculoskeletal: No symptoms reported Skin: No symptoms reported Hematologic/Lymphatic: See HPI Neurological/Psychological: No symptoms reported -: Yes All other systems reviewed and negative Physical Exam - Vital signs Vitals: Temp Pulse Resp BP Pulse Ox 97.5 F 102 H 16 98/61 L 98 02/16/20 10:03 02/16/20 10:03 02/16/20 10:03 02/16/20 10:03 02/16/20 10:03 - General General appearance: Appears well, Alert - HEENT Head: Normocephalic, Atraumatic Eyes: Normal Pupils: PERRL - Respiratory Respiratory status: No respiratory distress Chest status: Nontender Breath sounds: Normal Chest palpation: Normal - Cardiovascular Rhythm: Regular Heart sounds: Normal auscultation Murmur: No - Abdominal Inspection: Normal - Soft Distension: No distension Bowel sounds: Hyperactive Tenderness: Tender - LLQ, RLQ - Extremities General upper extremity: Normal inspection. No: Edema General lower extremity: Normal inspection. No: Edema - Neurological Neuro grossly intact: Yes Cognition: Normal Orientation: AAOx4 Speech: Normal - Psychological Associated symptoms: Normal affect, Normal mood - Skin Skin Temperature: Warm Skin Moisture: Dry Skin Color: Normal Course - Re-evaluation Re-evalutation: 02/16/20 15:03 Patient hemoglobin is 9.0 today, it was 9.2 yesterday, and 9.42 weeks ago. The MCV is 69. At this point is unclear if this anemia is due to blood loss, or malabsorption, or both. She does need to be on iron replacement. 02/16/20 15:10 All the above has been reviewed with the patient. I reviewed my conversation with Dr. Lott with the patient. She is asking for pain medication. She is frequently wanting to know what she can do about her pain, she did fill a prescription for Gazelle 10 mg tablets #90 only 12 days ago. She did receive 1 Percocet 5 mg tablet about 2-1/2 hours ago. - Vital Signs Vital signs: Temp Pulse Resp BP Pulse Ox 97.5 F 102 H 16 98/61 L 98 02/16/20 10:21 02/16/20 10:03 02/16/20 10:03 02/16/20 10:03 02/16/20 10:03 - Laboratory Result Diagrams: 02/16/20 14:01 02/16/20 12:38 Laboratory results interpreted by me: 02/16/20 02/16/20 12:38 14:01 Hgb 9.0 L Hct 28.1 L MCV 69 L MCH 22.2 L RDW 17.4 H Eos % (Auto) 6.4 H Total Protein 8.9 H - Diagnostic Test Radiology reviewed: Image reviewed, Reports reviewed - Ultrasound shows enlarged bilateral ovaries with multiple cysts. MOBILE QA TESTER consultation is recommended. - Consults Dr. Lott Time consulted: 15:00 Consulted provider: follow-up in office - Call the office in the morning, let them know she was seen in the emergency room and we did speak with Dr. Lott, ask for an MARY appointment. Discharge - Discharge Clinical Impression: Bilateral ovarian cysts, Pelvic pain Anemia Qualifiers: Anemia type: iron deficiency Iron deficiency anemia type: unspecified iron deficiency Qualified Code(s): D50.9 - Iron deficiency anemia, unspecified Condition: Stable Disposition: HOME, SELF-CARE Additional Instructions: Ovarian Cyst Your examination shows the presence of bilateral multicystic ovaries. This is a ball of fluid attached to the ovary. Ovarian cysts in women of child-bearing age are usually innocent. However, the cyst may cause pain when it grows or bursts. An innocent ovarian cyst will usually go away by itself. When the cyst becomes painful, you should rest. Pain medication may be required. Some women find a hot water bottle soothing. The pain usually resol ves within one or two days. After menopause, an ovarian cyst may mean a tumor, and requires more aggressive evaluation -- usually surgery is recommended to remove or biopsy the cyst. A very large cyst requires evaluation at any age. Most cysts (even the innocent ones) require follow-up examination. Call the doctor or return at any time if the pain increases significantly, if you become faint, or if you experience vaginal bleeding. Anemia, Iron Deficiency You have anemia (a lower than normal amount of red blood cells). Our tests show it's due to lack of iron in your body. In infants and children, iron deficiency is usually due to lack of iron in the diet. In adults, it's most often caused by blood loss (heavy periods or intestinal bleeding) or by . If the cause of iron deficiency is not clear, we evaluate for hidden intestinal bleeding. Another possible cause is failure to absorb iron properly. Iron-deficiency is treated with iron supplements. Iron pills can upset your stomach and cause constipation. Taking it with food decreases nausea. Expect the stool to become darker (but not black). Taking iron with a juice high in vitamin C (orange juice, tomato juice) increases absorption. You can increase your dietary iron by eating liver, oysters, and lean beef; wheat germ, peas, and lentils; and molasses, dried prunes, spinach, and broccoli. Contact the doctor at once if you note black or tarry-looking stools, bloody vomiting, shortness of breath, chest pain, or faintness. At this point, we cannot be certain how much of your iron deficiency is due to blood loss, and how much is due to malabsorption. Your prescribed iron tablets to help build your blood levels back up. You should continue taking the pain medication you were prescribed 2 weeks ago. Call [facility] tomorrow morning. Tell them you were seen in the emergency room 3 times in the past 2 weeks. Tell them we spoke with Dr. Lott today and he wants to get you to get an appointment in the office as soon as possible. RETURN TO THE EMERGENCY ROOM IF ANY NEW OR WORSENING SYMPTOMS. Prescriptions: Ferrous Sulfate 325 mg PO DAILY #100 tablet. Referrals: ANGELI MARAVILLA PA-C [Primary Care Provider] - Follow up as needed [facility] [Provider Group] - Follow up tomorrow (Call in the morning for an MARY appointment.) I personally performed the services described in the documentation, reviewed and edited the documentation which was dictated to the scribe in my presence, and it accurately records my words and actions.
== END 2020-02-16 15:54 | disposition home or self-care (01) ==
LOC: ER 10:00
DX: N83.202 Unspecified ovarian cyst, left side (principal); N83.201 Unspecified ovarian cyst, right side; R10.2 Pelvic and perineal pain; D50.9 Iron deficiency anemia, unspecified; N93.9 Abnormal uterine and vaginal bleeding, unspecified; M54.5 Low back pain; R63.4 Abnormal weight loss; R53.83 Other fatigue; R53.1 Weakness; R10.30 Lower abdominal pain, unspecified; Z88.8 Allergy status to other drugs, medicaments and biological substances
CPT/HCPCS: 99284; 36415; 84703; 85025; 80053; 87491; 87591; 76830; 93976; A9270

== ENCOUNTER 2020-05-08 04:04 | Emergency (ER) | payer MEDICARE, MEDICAID ==
[2020-05-08 04:17] VITALS: BP 111/77
== END 2020-05-08 05:59 | disposition left against medical advice (07) ==
LOC: ER 04:04
DX: Z53.21 Procedure and treatment not carried out due to patient leaving prior to being seen by health care provider (principal)

== ENCOUNTER 2020-05-10 03:06 | Emergency (ER) | payer OTHER, MEDICARE, MEDICAID ==
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
[2020-05-10 05:52] VITALS: BP 115/69
== END 2020-05-10 05:50 | disposition home or self-care (01) ==
LOC: ER 03:06
DX: M54.2 Cervicalgia (principal); V49.60XA Unspecified car occupant injured in collision with unspecified motor vehicles in traffic accident, initial encounter; M62.838 Other muscle spasm
CPT/HCPCS: 99283